=== PATIENT | female | born 1960 | race Caucasian/White ===

== ENCOUNTER 2017-05-05 14:28 | Inpatient (IN) | payer MEDICARE, OTHER ==
[~2017-05-05] VITALS: Ht 182.9 cm; Wt 116.1 kg
[~2017-05-05 14:28] MED LIST: B COMPLEX1 EACH PO; BACLOFEN PUMP; BACLOFEN10 MG PO; CALCIUM 500+D1 EACH PO; CENTRUM SILVER1 EAC3 PO; COLACE100 MG PO; COPAXONE20 MG/KIT IM; CRANBERRY200 MG PO; DULCOLAX SUPP10 MG RC; FISH OIL 1,0001 EAC2 PO; FLONASE16 GM; GINKO PO; MAGNESIUM OXID400 MG PO; METHYLPREDNISOLONE; NIACIN500 M2 PO; NITROFURANTOIN100 MG PO; NORVASC5 MG PO; NYSTATIN1 EAC3 TOP; OXANDROLONE2.5 MG PO; OXYBUTYNIN CHLOR5 MG PO; OYSTER SHELL C1 EA12 PO; PV NEURO VITE1 EACH PO; STOOL SOFTENER1 EAC2 PO; VITAMIN D-40400 UNIT PO; VITAMIN E400 UNI1 PO; WELLBUTRIN XL150 MG PO; Z.0.CITALOPRAM HBR40; Z.0.LEXAPRO20 MG MT
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
--- OUTSIDE RECORDS SUMMARY | 2017-05-05 14:31 | XMS REPORT | Clinical Summary ---
Author Author [facility] Address Unknown Phone Unavailable Care Team Providers Care Hydraulic Dredge Operator Name Role Phone Jordi Barfield MD PCP Allergies No Known Allergies Current Medications Prescription Sig. Disp. Refills Start End Date Status Date oxybutynin (DITROPAN) 5 12/10/19 Active MG tablet 16 nystatin (MYCOSTATIN) APPLY TO AFFECTED AREA 0 12/26/19 Active 100,000 unit/gram cream TWICE A DAY 16 mupirocin (BACTROBAN) 2 % APPLY 1 APPLCATION 0 12/26/19 Active ointment TOPICALLY TWICE A DAY 16 COPAXONE 40 mg/mL syringe 01/28/20 Active 16 amLODIPine (NORVASC) 5 mg Take 5 mg by mouth once 1 11/08/19 Active tablet daily. 16 lactulose (CHRONULAC) 10 TAKE 3 TEASPOONFUL BY 11/08/19 Active gram/15 mL solution MOUTH EVERY 8 HOURS 13 NEEDED mometasone (ELOCON) 0.1 % Apply 4 drops of lotion 04/01/19 Active lotion to entrance of both ears 15 twice a day as needed for itching. traMADol (ULTRAM) 50 mg Take 50 mg by mouth every 0 03/16/19 Active tablet 6 (six) hours as needed. 17 for pain SANTYL ointment 04/23/19 Active 17 baclofen (LIORESAL) 20 MG Take 1 tablet (20 mg 90 tablet 11 09/14/19 Active tabletIndications: total) by mouth 3 (three) 17 Spastic tetraplegia, MS times a day. (multiple sclerosis) LORAZepam (ATIVAN) 0.5 MG 03/11/19 Active tablet 18 mirtazapine (REMERON) 15 03/11/19 Active MG tablet 18 multivitamin with Take 1 tablet by mouth Active minerals tablet daily. cholecalciferol, vitamin Take 2,000 Units by mouth Active D3, (VITAMIN D3) 2,000 daily. unit capsule capsule CEFPODOXIME PROXETIL Take 250 mg by mouth 2 Active (CEFPODOXIME ORAL) (two) times a day. docusate sodium (COLACE) Take 100 mg by mouth 2 Active 100 MG capsule (two) times a day. CALCIUM CARBONATE Take 1 tablet by mouth 2 Active (CALTRATE 600 ORAL) (two) times a day. bisacodyl (DULCOLAX) 10 Insert 10 mg into the Active mg suppository rectum as needed for constipation. citalopram (CeleXA) 20 MG 03/17/19 Active tablet 18 baclofen (LIORESAL) 20 MG Take 1 tablet (20 mg 90 tablet 2 01/05/20 06/16/19 Discontin tablet total) by mouth 3 (three) 16 17 ued times a day for 90 days. oxandrolone (OXANDRIN) Take 2.5 mg by mouth once 1 01/18/20 03/13/19 Discontin 2.5 MG tablet daily. 16 18 ued nitrofurantoin, 01/26/20 03/13/19 Discontin macrocrystal-monohydrate, 16 18 ued (MACROBID) 100 MG capsule cefdinir (OMNICEF) 300 MG TAKE ONE CAPSULE BY MOUTH 0 12/26/19 Discontin capsule EVERY 12 HOURS 16 18 ued buPROPion XL (WELLBUTRIN 01/24/20 03/13/19 Discontin XL) 150 MG 24 hr tablet 16 18 ued baclofen (LIORESAL) 20 MG Take 20 mg by mouth 3 2 04/06/19 06/16/19 Discontin tablet (three) times a day as 17 17 ued needed. cefuroxime (CEFTIN) 500 TAKE 1 TABLET BY MOUTH 0 04/13/19 03/13/19 Discontin MG tablet TWICE A DAY FOR 3 WEEKS 17 18 ued fluconazole (DIFLUCAN) 04/21/19 03/13/19 Discontin 100 MG tablet 17 18 ued baclofen (LIORESAL) 20 MG Take 1 tablet (20 mg 90 tablet 2 06/16/19 09/14/19 Discontin tabletIndications: total) by mouth 3 (three) 17 17 ued Spastic tetraplegia, MS times a day. (multiple sclerosis) traZODone (DESYREL) 50 MG Take 1 tablet (50 mg 30 tablet 3 11/17/19 12/17/19 tablet total) by mouth nightly 17 17 for 30 days. traZODone (DESYREL) 50 MG Take 1 tablet (50 mg 90 tablet 0 01/04/20 01/17/20 Discontin tablet total) by mouth nightly 17 17 ued for 90 days. traZODone (DESYREL) 50 MG Take 1 tablet (50 mg 30 tablet 6 01/17/20 02/16/20 tablet total) by mouth nightly 17 17 for 30 days. traZODone (DESYREL) 50 MG Take 1 tablet (50 mg 90 tablet 3 01/17/20 04/16/19 tablet total) by mouth nightly 17 18 for 90 days. 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 Impacted cerumen 08/02/2012 Eczema 08/02/2012 Incontinence 08/12/2010 Weakness 08/12/2010 Constipation 02/04/2010 Multiple sclerosis 02/04/2010 Muscle spasticity 02/04/2010 Encounters Date Type Specialty Care Team Description 04/18/2017 Telephone Urology Yue Murrieta MD 04/18/2017 Telephone Physical Medicine and Stacey Coker RN Urinary incontinence Rehabilitation without sensory awareness (Primary Dx) 04/05/2017 Office Visit Physical Medicine and Marie Bess MD Spasticity (Primary Dx) Rehabilitation 03/20/2017 Clinical Physical Medicine and Marie Bess MD Insomnia, unspecified Support Rehabilitation type (Primary Dx); Decubitus ulcer of sacral region, stage 2; Spastic tetraplegia; MS (multiple sclerosis); Cognitive impairment 03/15/2017 Telephone Physical Medicine and Stacey Coker RNmanager stylist 03/13/2017 Clinical Physical Medicine and Marie Bess MD Insomnia, unspecified Support Rehabilitation type (Primary Dx); Decubitus ulcer of sacral region, stage 2; Cognitive impairment; Spastic tetraplegia; MS (multiple sclerosis) 01/16/2017 Clinical Physical Medicine and Marie Bess MD MS ( multiple sclerosis) Support Rehabilitation (Primary Dx); Spastic tetraplegia; Muscle spasticity; Decubitus ulcer of sacral region, stage 2; Insomnia, unspecified type 01/03/2017 Telephone Physical Medicine and Stacey Coker RNmanager stylist 11/28/2016 Transcribe Physical Therapy Marie Bess MD Tetraplegia ( Primary Dx); Orders MS (multiple sclerosis) 11/16/2016 Clinical Physical Medicine and Marie Bess MD Spastic tetraplegia Support Rehabilitation (Primary Dx); MS (multiple sclerosis); Fracture of right lower extremity, closed, with routine healing, subsequent encounter; Cognitive impairment; Pressure ulcer, stage 2 09/21/2016 Clinical Physical Medicine and Marie Bess MD Spastic tetraplegia Support Rehabilitation (Primary Dx) 09/13/2016 Refill Physical Medicine and Geeta Rivera, Spastic tetraplegia; Rehabilitation RN MS (multiple sclerosis) 07/29/2016 Clinical Physical Medicine and Marie Bess MD MS ( multiple sclerosis) Support Rehabilitation (Primary Dx); Tetraplegia; Spastic tetraplegia 07/19/2016 Office Visit Neuropsychology Bayron Thurston, PhD MS ( multiple sclerosis); Memory loss; Executive function deficit 06/22/2016 Telephone Physical Medicine and Stacey Coker RNmanager stylist 06/15/2016 Refill Physical Medicine and Geeta Rivera, MS ( multiple sclerosis) Rehabilitation RN (Primary Dx); Spastic tetraplegia 05/25/2016 Office Visit Physical Medicine and Marie Bess MD Multiple sclerosis Rehabilitation (Primary Dx); Spastic tetraplegia; Cognitive impairment 05/13/2016 Transcribe Physical Therapy Paul Wade MD Multiple sclerosis Orders (Primary Dx) 05/10/2016 Telephone Ophthalmology Clinton Thomson MD after 05/04/2016 Family History Medical History Relation Name Comments Hypertension Father Relation Name Status Comments Father Social History Tobacco Use Types Packs/Day Years Used Date Current Every Day Smoker 1 Smokeless Tobacco: Never Used Tobacco Cessation: Ready to Quit: Yes; Counseling Given: Yes Alcohol Use Drinks/Week oz/Week Comments Yes Sex Assigned at Date Recorded Not on file Last Filed Vital Signs Vital Sign Reading Time Taken Blood Pressure 103/80 03/13/2017 2:39 PM ROD TAPE OPERATOR Pulse 118 03/13/2017 2:39 PM ROD TAPE OPERATOR Temperature - - Respiratory Rate - - Oxygen Saturation - - Inhaled Oxygen - - Concentration Weight - - Height - - Body Mass Index - - Plan of Treatment Date Type Specialty Care Team Description 05/30/2017 Clinical Physical Medicine and Marie Bess MD Support Rehabilitation [address] [place], [place] [id number] Health Maintenance Due Date Last Done Comments PAP SMEAR 1982 COLONOSCOPY 2011 MAMMOGRAM 2011 INFLUENZA VACCINE 09/20/2016 Results * Pain pump device (04/05/2017 3:15 PM) Only the most recent of 11 results within the time period is included. Narrative Marie Bess MD 04/05/20174:46 PM Baclofen Pump Date/Time: 04/05/2017 4:40 PM Performed by: GEETA RIVERA Authorized by: MARIE BESS Procedure details: Procedure Type:Reprogram Reprogram Type:Pump interrogated and dosing not changed Estimated VELASQUEZ: 9 Current Total Daily Dose: 959.9 Current Dose Type: flex Estimated residual volume (mL):32.3 s/p MRI Motor stall recovery time:15:25 Alarm Date:06/07/2017 Post-procedure details: Patient tolerance of procedure:Tolerated well, no immediate complications Comments: Will need referral for pump replacement after next pump refill. * Mobility Examination (11/16/2016 4:26 PM) Narrative Marie Bess MD 11/16/20164:26 PM Mobility Exam Date/Time: 11/16/2016 2:59 PM Performed by: MARIE BESS Authorized by: MARIE BESS Medical conditon(s)/disease(s) limiting patient's mobility in home: Multiple Sclerosis and Quadriplegia Physical Exam - Symptoms/ Limitations / Pain: SYMPTOMS:Non-Ambulatory, Abnormal Gait, Unsafe Gait, Risk of Falls, Paralysis, Fatigue and Spastic Upper Body Weakness:Severe Upper Body Pain:None Upper Body Range of Motion:Severely Limited Lower Body Weakness:Severe Lower Body Pain:None Lower Body Range of Motion:Severely Limited PAIN LOCATION:No complaint of pain Mobility Questions: Patient has ability to stand from seated position without assistance?: No Patient Transfer:Dependent Can patient lift themselves from seated surface using only upper extremities?: No Does patient have ability to effectively pressure shift?: No History of pressure sores?: Yes Location(s):Sacral Stage(s):2 Current pressure sores?: Yes Location(s):Sacral Stage(s):2 Upper Extremity Edema: No Lower Extremity Edema: Yes LE Edema Severity:Mild Mobility Related Activities of Daily Living: Without a mobility aid, how far can patient walk without stopping (ft)?: 0 Distance allows patient to complete MRADL in safe and timely manner?: No Select all MRADL that patient is unable to accomplish due to mobility limitations.:Eating, Grooming, Moving from Room to Room, Dressing, Bathing, Meal Prep, Toileting and Light Housekeeping Is patient willing and have cogintion, judgment and/or vision to independently participate in MRADLs with a mobility device?: Yes Will a cane or walker allow patient to complete all MRADLs safely and timely?: No Does patient have sufficient upper and/or lower extremity strength to self-propel an optimally configured manual wheelchair to complete all MRADLs safely and timely?: No Scooter use requires a patient to have sufficient trunk strength, hand gasket maker, and upper extremity function, balance to sit upright, requires the ability to stand and pivot and may require more space in home to maneuver. Given these requirements, is a scooter appropriate?: No Reason(s):Patient has insufficient trunk stability, Patient has insufficient upper extremity function and/or strength, Patient has insufficient hand gasket maker, Patient does not have sufficient balance to sit upright and Patient requires seating and/or options that aren't available on a scooter Does the patient have the functional ability to consistently access a drive controland the cognition, judgment, and visual ability to safely operate a power wheelchair to participate in MRADLs within their home?: Yes Patient requires OT/PT Functional Mobility Assessment?: Yes after 05/04/2016 Insurance Payer Benefit Subscriber ID Type Phone Address Plan / Group MEDICARE MEDICARE xxxxxxxxxx Medicare [place], [place] PART A AND B [facility] xxxxxxxx Commercial SUPPLEMENT Work: [id number] [facility] [place] [id number] Home:
[2017-05-05 16:19] LABS: BASOPHILS % 0.3 % (0.0-1.0); EOSINOPHILS # (AUTO) 0.2 (0.0-0.4); EOSINOPHILS % 1.7 % (0.0-6.0); HEMATOCRIT 42.2 % (34.2-44.1); HEMOGLOBIN 14.6 g/dL (12.0-16.0); LYMPHOCYTES # (AUTO) 1.6 (1.0-3.2); LYMPHOCYTES % 11.3 % (18.0-39.1); MEAN CORPUSCULAR HEMOGLOBIN 34.3 pg (28-32); MEAN CORPUSCULAR HGB CONC 34.6 g/dL (31-35); MEAN CORPUSCULAR VOLUME 99.1 fL (81-99); MONOCYTES # (AUTO) 0.6 (0.2-0.8); MONOCYTES % 4.4 % (4.4-11.3); NEUTROPHILS # (AUTO) 11.4 (2.1-6.9); NEUTROPHILS % 81.9 % (38.7-80.0); PLATELET COUNT 290 x10e3/uL (140-360); RED BLOOD COUNT 4.26 x10e6/uL (3.6-5.1); RED CELL DISTRIBUTION WIDTH 13.1 % (11.7-14.4)
[2017-05-05 16:37] LABS: ALANINE AMINOTRANSFERASE 24 IU/L (0-55); ALBUMIN 2.9 g/dL (3.5-5.0); ALBUMIN/GLOBULIN RATIO 0.7 (0.8-2.0); ALKALINE PHOSPHATASE 110 IU/L (40-150); ANION GAP 16.2 mmol/L (8-16); BLOOD UREA NITROGEN 6 mg/dL (7-26); BUN/CREATININE RATIO 13 (6-25); CALCIUM 9.6 mg/dL (8.4-10.2); CARBON DIOXIDE 30 mmol/L (22-29); CHLORIDE 90 mmol/L (98-107); CREATININE, SERUM 0.46 mg/dL (0.57-1.11); EST GLOMERULAR FILTRATION RATE > 60 ML/MIN (60-); GLUCOSE 96 mg/dL (74-118); POTASSIUM 4.2 mmol/L (3.5-5.1); SODIUM 132 mmol/L (136-145)
[2017-05-05] MEDS ORDERED: SODIUM CHLORIDE 0.9% 1000ML 500 ML IV STA (16:57)
[2017-05-05] MEDS ORDERED: SODIUM CHLORIDE 0.9% 1000ML 1,000 ML IV STA (16:57)
[2017-05-05] MEDS ORDERED: CEFEPIME HCL 1 GM VIAL IV ONE (17:00)
[2017-05-05] MEDS ORDERED: ONDANSETRON HCL INJ 2 MG/ML VIAL IV PRN (17:15)
[2017-05-05] MEDS ORDERED: MORPHINE SULFATE 2 MG/ML SYR IV PRN (17:15)
[2017-05-05] MEDS: CEFEPIME HCL 1 GM VIAL IV SCH (17:20)
[2017-05-05] MEDS: SODIUM CHLORIDE 0.9% 1000ML 1,000 ML IV SCH (17:20)
--- NOTE | 2017-05-05 18:14 | Diagnostic Imaging Report ---
PROCEDURE: A single AP view of the chest. COMPARISON: 11/19/15 INDICATIONS: fever, uti FINDINGS: Lines/tubes: None. Lungs: The lungs are well inflated. Minimal left lower lung field haziness. Pleura: There is no significant pleural effusion or pneumothorax. Heart and mediastinum: The heart and the mediastinum are unremarkable. Bones: No acute bony abnormality. Redemonstration of marked dextroscoliosis. IMPRESSION: Minimal left lower lung field haziness, which could represent atelectasis and/or pneumonia. Dictated by: Brian Cantu M.D. on 05/05/2017 at 18:14 Electronically approved by: Brian Cantu M.D. on 05/05/2017 at 18:14
[2017-05-05] MEDS ORDERED: LEVOFLOXACIN 750MG/D5W 150ML 150 ML IV ONE (18:30)
[2017-05-05 18:46] LABS: BILIRUBIN,URINE NEGATIVE (NEGATIVE); CLARITY,URINE SL CLOUDY (CLEAR); COLOR,URINE STRAW (YELLOW); KETONES,URINE NEGATIVE (NEGATIVE); LEUKOCYTE ESTERASE ,URINE 2+ (NEGATIVE); NITRITE,URINE POSITIVE (NEGATIVE); PROTEIN,URINE DIPSTICK TRACE (NEGATIVE); URINE UROBILINOGEN 0.2 mg/dL (0.2 - 1)
[2017-05-05 18:59] LABS: BACTERIA,URINE MODERATE /HPF; EPITHELIAL CELLS,URINE FEW /LPF; RBC,URINE 21-50 /HPF (0-5)
--- NOTE | 2017-05-05 21:45 | Diagnostic Imaging Report ---
CHEST XRAY LINE PLACEMENT, 05/05/2017 9:19 PM Technique: CHEST XRAY LINE PLACEMENT Comparison: 02/22/1505/05/2017 Clinical history: \S\CONFIRM LINE PLACEMENT \[id number] \S\2100 \S\Y Findings: See Impression Impression: Limited portable technique with right lateral hemithorax excluded and leftward patient rotation. 1. Lines/Tubes: Right PICC seen at least over the proximal SVC, tip not visualized. 2. Grossly stable cardiomediastinal silhouette. Left basilar atelectasis/aspiration/consolidation. Signed by: Dr Ofelia Pacheco MD on 05/05/2017 10:31 PM
[2017-05-06] MEDS: SODIUM CHLORIDE 0.9% 1000ML 1,000 ML IV SCH ×3 (01:08→22:27)
[2017-05-06 06:00] LABS: BASOPHILS % 0.3 % (0.0-1.0); EOSINOPHILS # (AUTO) 0.4 (0.0-0.4); EOSINOPHILS % 4.1 % (0.0-6.0); HEMATOCRIT 38.7 % (34.2-44.1); HEMOGLOBIN 13.1 g/dL (12.0-16.0); LYMPHOCYTES # (AUTO) 1.4 (1.0-3.2); LYMPHOCYTES % 14.8 % (18.0-39.1); MEAN CORPUSCULAR HEMOGLOBIN 34.3 pg (28-32); MEAN CORPUSCULAR HGB CONC 33.9 g/dL (31-35); MEAN CORPUSCULAR VOLUME 101.3 fL (81-99); MONOCYTES # (AUTO) 0.6 (0.2-0.8); MONOCYTES % 6.4 % (4.4-11.3); NEUTROPHILS % 74.2 % (38.7-80.0); PLATELET COUNT 259 x10e3/uL (140-360); RED BLOOD COUNT 3.82 x10e6/uL (3.6-5.1)
[2017-05-06] MEDS: CEFEPIME HCL 1 GM VIAL IV SCH ×2 (06:29→16:18)
[2017-05-06 06:56] LABS: ALANINE AMINOTRANSFERASE 18 IU/L (0-55); ALBUMIN 2.5 g/dL (3.5-5.0); ALBUMIN/GLOBULIN RATIO 0.8 (0.8-2.0); ALKALINE PHOSPHATASE 91 IU/L (40-150); ANION GAP 9.2 mmol/L (8-16); BLOOD UREA NITROGEN 5 mg/dL (7-26); BUN/CREATININE RATIO 12 (6-25); CALCIUM 8.5 mg/dL (8.4-10.2); CARBON DIOXIDE 31 mmol/L (22-29); CHLORIDE 97 mmol/L (98-107); CREATININE, SERUM 0.43 mg/dL (0.57-1.11); EST GLOMERULAR FILTRATION RATE > 60 ML/MIN (60-); GLUCOSE 90 mg/dL (74-118); POTASSIUM 3.2 mmol/L (3.5-5.1); SODIUM 134 mmol/L (136-145)
--- OUTSIDE RECORDS SUMMARY | 2017-05-06 07:22 | XMS REPORT | Clinical Summary ---
Author Author [facility] Address Unknown Phone Unavailable Care Team Providers Care Armament Installer Name Role Phone Jordi Barfield MD PCP [...] 03/15/2017 Telephone Physical Medicine and Stacey Coker RNrailroad watchman 03/13/2017 Clinical Physical Medicine and Marie Bess [...] 01/03/2017 Telephone Physical Medicine and Stacey Coker RNrailroad watchman 11/28/2016 Transcribe Physical Therapy Marie Bess MD [...] 06/22/2016 Telephone Physical Medicine and Stacey Coker RNrailroad watchman 06/15/2016 Refill Physical Medicine and Geeta Rivera, MS ( multiple sclerosis) Rehabilitation RN (Primary Dx); Spastic tetraplegia 05/25/2016 Office Visit Physical Medicine and Marie Bess MD Multiple sclerosis Rehabilitation (Primary Dx); Spastic tetraplegia; Cognitive impairment 05/13/2016 Transcribe Physical Therapy Paul Wade MD Multiple sclerosis Orders (Primary Dx) 05/10/2016 Telephone Ophthalmology Clinton Thomson MD after 05/05/2016 Family History Medical History Relation Name Comments [...] Taken Blood Pressure 103/80 03/13/2017 2:39 PM FURNITURE POLISHER Pulse 118 03/13/2017 2:39 PM FURNITURE POLISHER Temperature - - Respiratory Rate - - Oxygen Saturation - - Inhaled Oxygen - - Concentration Weight - - Height - - Body Mass Index - - Plan of Treatment Date Type Specialty Care Team Description 05/30/2017 Clinical Physical Medicine and Marie Bess MD Support Rehabilitation [address] [place], [place] [id number] Health Maintenance Due Date Last Done Comments [...] patient to have sufficient trunk strength, hand furniture packer, and upper extremity function, balance to sit upright, requires the ability to stand and pivot and may require more space in home to maneuver. Given these requirements, is a scooter appropriate?: No Reason(s):Patient has insufficient trunk stability, Patient has insufficient upper extremity function and/or strength, Patient has insufficient hand furniture packer, Patient does not have sufficient balance to sit upright and Patient requires seating and/or options that aren't available on a scooter Does the patient have the functional ability to consistently access a drive controland the cognition, judgment, and visual ability to safely operate a power wheelchair to participate in MRADLs within their home?: Yes Patient requires OT/PT Functional Mobility Assessment?: Yes after 05/05/2016 Insurance Payer Benefit Subscriber ID Type Phone Address Plan / Group MEDICARE MEDICARE xxxxxxxxxx Medicare [place], [place] PART A AND B [facility] xxxxxxxx Commercial SUPPLEMENT Work: [address] [facility] [place] [id number] Home:
[2017-05-06 10:50] VITALS: BP 125/85
[2017-05-06 10:52] VITALS: BP 125/85
[2017-05-06] MEDS ORDERED: BACLOFEN 10 MG TAB PO PRN (12:30)
[2017-05-06] MEDS: NITROFURANTOIN MACROCRYSTALS 100 MG CAP PO SCH ×2 (13:30→23:56)
[2017-05-06] MEDS ORDERED: POTASSIUM CHLORIDE 10 MEQ TABCR PO SCH (14:00)
[2017-05-06 15:37] VITALS: BP 141/84
[2017-05-06 18:55] VITALS: BP 140/82
--- NOTE | 2017-05-06 19:56 | Consultation ---
DATE OF CONSULTATION: May 06, 2017 INFECTIOUS DISEASE CONSULTATION REASON FOR CONSULTATION: Pyelonephritis, UTI. HISTORY OF PRESENT ILLNESS: Thank you very much for asking me to see this patient. She is known to me from before. She is a 57-year-old white female who has history of multiple sclerosis really advanced. The patient called me on Monday complaining of fever and chills, back pain, not feeling well. The patient has history of recurrent UTI before. She is on suppressive oral antibiotic, but because she has history of multidrug-resistant pathogen, I was really concerned that she needed to be on IV antibiotic, something like cefepime or meropenem. So, I asked her to come to the hospital to be admitted. The patient came to the hospital. She does have history of suprapubic catheter. She has been seeing Dr. Jake Buck as an outpatient. When I saw the patient, she was just not feeling well, having fever and chills. She did not want to come to the hospital, but I told her it is very hard for me to secure her IV antibiotic and I do not know what kind of bacteria she is growing and she is possibly multidrug-resistant since she is on oral antibiotic. She has been on oral antibiotic for a long time. So, she finally agreed to come to the hospital. PAST MEDICAL HISTORY: Multiple sclerosis which is advanced. Suprapubic catheter. Depression. Chronic constipation. PAST SURGICAL HISTORY: She has a suprapubic catheter. Urostomy. [place] pouch. Baclofen pump. ALLERGIES: NKA. SOCIAL HISTORY: There is no smoking, drug abuse, alcohol abuse. Patient has an excellent caregiver who takes care of her. HOME MEDICATIONS: She is on baclofen, niacin, ibuprofen, magnesium, vitamin B, Colace, nitrofurantoin, nystatin. REVIEW OF SYSTEMS CONSTITUTIONAL: Just not feeling well in general. HEENT: She has no visual changes or hearing changes. GI: There is no nausea, no vomiting, no diarrhea. CARDIAC: There is no arrhythmia or chest pain. NEURO: No seizure activity but she is very limited mobility. She has a wheelchair. She is dependent on care. She needs 24-hour care. LABORATORY DATA: White count on admission was 13.8, hemoglobin 14.4, hematocrit 42. Today it is 9.3. Her sodium 134, potassium 3.2, creatinine of 0.43. Liver enzymes within normal limits. Her culture is still pending. Urine culture is still pending. PHYSICAL EXAMINATION GENERAL: She is currently alert, oriented, does not seem to be in acute distress. VITAL SIGNS: Stable. Currently afebrile. HEENT: She does not appear icteric. NECK: Supple. CHEST: Clear. HEART: S1 and S2. No S3 or S4, no murmur. ABDOMEN: Soft. Bowel sounds present. No tenderness. EXTREMITIES: No edema. IMPRESSION 1. Urinary tract infection. Will continue cefepime. Seems to be feeling better. White count is coming down. 2. Multiple sclerosis, severe. 3. Constipation. 4. Will arrange home IV antibiotic once we have the sensitivity. Will plan on 14 days of IV antibiotic. Discussed with the patient. Job#: [id number] EV
[2017-05-06 20:00] VITALS: BP 140/82
[2017-05-07] VITALS: BP 149/89
[2017-05-07 04:00] VITALS: BP 154/109
[2017-05-07] MEDS: CEFEPIME HCL 1 GM VIAL IV SCH ×2 (04:17→16:19)
[2017-05-07] MEDS: SODIUM CHLORIDE 0.9% 1000ML 1,000 ML IV SCH ×4 (05:20→22:31)
[2017-05-07 08:18] VITALS: BP 152/92
[2017-05-07] MEDS: OXANDROLONE PO SCH (09:00)
[2017-05-07] MEDS: OYST-CAL-D 500MG TABLET PO SCH (09:33)
[2017-05-07] MEDS: OXYBUTYNIN CHLORIDE 5 MG TAB PO SCH (09:33)
[2017-05-07] MEDS: NIACIN 500 MG TABSR PO SCH (09:33)
[2017-05-07] MEDS: DOCUSATE SODIUM 100 MG CAP PO SCH (09:33)
[2017-05-07] MEDS: MAGNESIUM OXIDE 400 MG TAB PO SCH (09:33)
[2017-05-07] MEDS: AMLODIPINE BESYLATE 5 MG TAB PO SCH (09:33)
[2017-05-07] MEDS: BUPROPION HCL 150 MG TABCR PO SCH (09:33)
[2017-05-07] MEDS ORDERED: CITRATE OF MAGNESIA 300ML BOTTLE PO ONE ×2 (09:45→13:00)
[2017-05-07] MEDS: NITROFURANTOIN MACROCRYSTALS 100 MG CAP PO SCH (11:43)
[2017-05-07 12:20] VITALS: BP 133/81
[2017-05-07 15:45] LABS: BASOPHILS % 0.4 % (0.0-1.0); EOSINOPHILS # (AUTO) 0.3 (0.0-0.4); EOSINOPHILS % 2.9 % (0.0-6.0); HEMATOCRIT 42.7 % (34.2-44.1); HEMOGLOBIN 14.5 g/dL (12.0-16.0); LYMPHOCYTES # (AUTO) 0.9 (1.0-3.2); LYMPHOCYTES % 9.1 % (18.0-39.1); MEAN CORPUSCULAR HEMOGLOBIN 34.4 pg (28-32); MEAN CORPUSCULAR VOLUME 101.2 fL (81-99); MONOCYTES # (AUTO) 0.5 (0.2-0.8); MONOCYTES % 5.2 % (4.4-11.3); NEUTROPHILS # (AUTO) 8.3 (2.1-6.9); PLATELET COUNT 291 x10e3/uL (140-360); RED BLOOD COUNT 4.22 x10e6/uL (3.6-5.1)
[2017-05-07 16:06] LABS: ANION GAP 12.6 mmol/L (8-16); BLOOD UREA NITROGEN 6 mg/dL (7-26); BUN/CREATININE RATIO 12 (6-25); CALCIUM 8.7 mg/dL (8.4-10.2); CARBON DIOXIDE 32 mmol/L (22-29); CHLORIDE 98 mmol/L (98-107); CREATININE, SERUM 0.52 mg/dL (0.57-1.11); EST GLOMERULAR FILTRATION RATE > 60 ML/MIN (60-); GLUCOSE 123 mg/dL (74-118); POTASSIUM 3.6 mmol/L (3.5-5.1); SODIUM 139 mmol/L (136-145)
--- NOTE | 2017-05-07 16:41 | Progress Note ---
DATE: May 07, 2017 INFECTIOUS DISEASE PROGRESS NOTE SUBJECTIVE: Ms. Espinoza is doing better today. There are no new complaints. REVIEW OF SYSTEMS HEENT: Negative. PULMONARY: Negative. CARDIAC: Negative. PHYSICAL EXAMINATION GENERAL: She is currently alert, oriented, does not seem to be in acute distress, follows commands. VITAL SIGNS: Stable. Currently afebrile. HEENT: She does not appear icteric. Normocephalic. NECK: Supple. CHEST: Clear. HEART: S1 and S2. No S3 or S4, no murmur. ABDOMEN: Soft. Bowel sounds present. No tenderness. EXTREMITIES: Trace edema. There is no new urological finding. She had no fever since admission. Her urine culture is showing gram-negative bacilli, enterococcus. The gram-negative bacilli was 1:99,000 final colony, and enterococcus is about the same. MEDICATION: She is no Macrobid and niacin and cefepime. IMPRESSION 1. Urinary tract infection, sepsis and pyelonephritis. UTI and pyelonephritis present on admission. Failed oral antibiotic as suppressive treatment. Will discharge home tomorrow with cefepime 1 g q.12 for 14 days. 2. Discussed with her caregiver. The patient apparently has been drinking alcohol. She probably had like over the last 3 days before she came here. The patient is aware, and these are her wishes. 3. Multiple sclerosis, advanced. 4. Suprapubic catheter. 5. Depression. 6. Chronic constipation. Will follow. Job#: [id number] EV
[2017-05-07 17:05] VITALS: BP 143/79
--- NOTE | 2017-05-07 17:25 | Diagnostic Imaging Report ---
EXAM: CT Abdomen and Pelvis WITHOUT contrast INDICATION: \S\UTI'S, NGB, ANNA POUCH. STONE PROTOCOL. \[id number] \S\[id number] COMPARISON: CT dated 02/17/2015 TECHNIQUE: Abdomen and pelvis were scanned utilizing a multidetector helical scanner from the lung base to the pubic symphysis without administration of IV contrast. Absence of intravenous contrast decreases sensitivity for detection of focal lesions and vascular pathology. Coronal and sagittal reformations were obtained. Renal stone protocol was performed. IV CONTRAST: None ORAL CONTRAST: Water COMPLICATIONS: None RADIATION DOSE: Total DLP: 639.88 mGy*cm Estimated effective dose: (DLP x 0.015 x size factor) mSv CTDIvol has been reviewed. It is below the limits set by the Radiation Protocol Committee (RPC). FINDINGS: LINES and TUBES: Suprapubic Lazo catheter in place. Right lower quadrant subcutaneous spine stimulator device in place with distal lead extending beyond the superior margin of the exam. LOWER THORAX: Posterior left base consolidation, likely atelectasis. There is also mild atelectasis of the right base. HEPATOBILIARY: Unenhanced liver is unremarkable. Bladder wall No biliary ductal dilation. GALLBLADDER: Fundal gallbladder wall is irregular thickening (series 3, image 83). There is also a questionable partially calcified calculus in gallbladder neck. SPLEEN: No splenomegaly. PANCREAS: No focal masses or ductal dilatation. ADRENALS: 2.4 cm left adrenal adenoma. No right adrenal nodule. KIDNEYS/URETERS: Minimal right hydroureteronephrosis. Dilated right extrarenal pelvis. Examination of renal parenchyma is limited without intravenous contrast. Possible superior pole left renal cyst. No stones. GI TRACT: No abnormal distention, wall thickening, or evidence of bowel obstruction. Stool throughout the colon, suggestive of constipation. Right lower quadrant colonic suture line. PELVIC ORGANS/BLADDER: Bladder wall thickening with intravesical air and suprapubic Lazo catheter in place. LYMPH NODES: No lymphadenopathy. VESSELS: Unremarkable. PERITONEUM / RETROPERITONEUM: No free air or fluid. BONES: Generalized demineralization limits evaluation. Right inferior pubic ramus ill-defined sclerosis (series 3, image 181). Mild scoliosis of lumbar spine. SOFT TISSUES: Increased induration adjacent to the left greater trochanter with a tract to the skin (series 3, image 180). Subcutaneous edema of the bilateral flank and pelvis IMPRESSION: 1. No nephrolithiasis or evidence of obstructive urolithiasis. 2. Minimal right hydroureteronephrosis with distended extrarenal pelvis. 3. Bladder wall thickening with suprapubic Lazo catheter in place. Cystitis cannot be excluded. 4. Ill-defined sclerotic lesion of the right inferior pubic ramus. Bone scan can be obtained to further evaluate. 5. Posterior left basilar lung consolidation, likely atelectasis/scarring. Underlying pneumonia cannot be entirely excluded. 6. Questionable cholelithiasis. The gallbladder fundus is prominent. Underlying lesion cannot be excluded. Recommend correlation with right upper quadrant ultrasound. 7. Increased induration adjacent to the left greater trochanter with a tract to the skin. Infectious process or developing abscess cannot be excluded. No definite evidence of osteomyelitis. Signed by: Dr. Brian Cantu MD on 05/07/2017 5:21 PM
[2017-05-07 20:53] VITALS: BP 159/77
[2017-05-08] VITALS (10 sets, daily range): BP systolic 134–176; BP diastolic 58–98
[2017-05-08] MEDS: NITROFURANTOIN MACROCRYSTALS 100 MG CAP PO SCH (00:42)
[2017-05-08] MEDS: SODIUM CHLORIDE 0.9% 1000ML 1,000 ML IV SCH ×4 (01:08→23:44)
[2017-05-08] MEDS: CEFEPIME HCL 1 GM VIAL IV SCH (05:30)
[2017-05-08] MEDS: DOCUSATE SODIUM 100 MG CAP PO SCH (08:42)
[2017-05-08] MEDS: OYST-CAL-D 500MG TABLET PO SCH (08:42)
[2017-05-08] MEDS: BUPROPION HCL 150 MG TABCR PO SCH (08:42)
[2017-05-08] MEDS: MAGNESIUM OXIDE 400 MG TAB PO SCH (08:42)
[2017-05-08] MEDS: OXYBUTYNIN CHLORIDE 5 MG TAB PO SCH (08:42)
[2017-05-08] MEDS: NIACIN 500 MG TABSR PO SCH (08:42)
[2017-05-08] MEDS: OXANDROLONE PO SCH (08:42)
[2017-05-08] MEDS: AMLODIPINE BESYLATE 5 MG TAB PO SCH (08:42)
[2017-05-08] MEDS ORDERED: PIPER-TAZ 3.375 GM 50 ML IV SCH (10:00)
--- NOTE | 2017-05-08 16:38 | Progress Note ---
DATE: INFECTIOUS DISEASE PROGRESS NOTE SUBJECTIVE: Ms. Espinoza is eager to go home. She has no new complaints. REVIEW OF SYSTEMS: There is nothing new today. PHYSICAL EXAMINATION GENERAL: She is alert, follows command, does not seem to be in acute distress. VITAL SIGNS: Stable. Currently afebrile. HEENT: She does not appear icteric. NECK: Supple. CHEST: Clear. HEART: S1 and S2. No S3 or S4, no murmur. ABDOMEN: Soft. NEURO: Nothing new in neurological examination. She is about the same. Her cultures reveal she has Pseudomonas aeruginosa and Enterococcus faecalis. The Pseudomonas aeruginosa was sensitive to imipenem, gentamicin, resistant to Levaquin. IMPRESSION 1. Urinary tract infection with multidrug resistance. Will discontinue Zosyn. Will discontinue nitrofurantoin, and cefepime has been discontinued. Will put her on meropenem. Will ask for 2 weeks of IV meropenem to be arranged if possible as an outpatient. 2. Multiple sclerosis, severe. 3. Depression. Will discuss with Case Management to see what are her options. Job#: [id number] EV
[2017-05-08] MEDS ORDERED: MEROPENEM 500 MG VIAL ONE ×2 (20:32→22:22)
[2017-05-08] MEDS: MEROPENEM 500MG 500 MG in SODIUM CHLORIDE 0.9% 50ML 50 ML IV SCH (22:47)
[2017-05-09] VITALS (7 sets, daily range): BP systolic 143–176; BP diastolic 74–98
[2017-05-09] MEDS ORDERED: MEROPENEM 500 MG VIAL ONE ×2 (04:48→14:16)
[2017-05-09] MEDS: MEROPENEM 500MG 500 MG in SODIUM CHLORIDE 0.9% 50ML 50 ML IV SCH ×2 (06:03→14:47)
[2017-05-09] MEDS: SODIUM CHLORIDE 0.9% 1000ML 1,000 ML IV SCH ×2 (08:30→16:41)
[2017-05-09] MEDS: OXYBUTYNIN CHLORIDE 5 MG TAB PO SCH (09:33)
[2017-05-09] MEDS: DOCUSATE SODIUM 100 MG CAP PO SCH (09:33)
[2017-05-09] MEDS: OYST-CAL-D 500MG TABLET PO SCH (09:34)
[2017-05-09] MEDS: MAGNESIUM OXIDE 400 MG TAB PO SCH (09:34)
[2017-05-09] MEDS: AMLODIPINE BESYLATE 5 MG TAB PO SCH (09:34)
[2017-05-09] MEDS: NIACIN 500 MG TABSR PO SCH (09:34)
[2017-05-09] MEDS: BUPROPION HCL 150 MG TABCR PO SCH (09:34)
[2017-05-09] MEDS: OXANDROLONE PO SCH (09:34)
[2017-05-09] MEDS ORDERED: MERREM500 MG IV ×2 (19:58→20:00)
[2017-05-09] MEDS ORDERED: MEROPENEM 500 MG VIAL IV SCH ×2 (22:00)
== END 2017-05-09 21:22 | disposition home health service (06) | DRG 698 ==
LOC: ER 14:28 → ERHOLD 05-06 07:19 → IMCU 05-06 09:20 → OBSVTOIN 05-07 05:33 → MED/SURG 05-07 17:52 → MED/SURG3 05-08 15:47
PROC: 02HV33Z Insertion of Infusion Device into Superior Vena Cava, Percutaneous Approach (ICD-10-PCS; principal; 2017-05-05)
DX: T83.511A Infection and inflammatory reaction due to indwelling urethral catheter, initial encounter (principal); A41.9 Sepsis, unspecified organism; G35 Multiple sclerosis; N12 Tubulo-interstitial nephritis, not specified as acute or chronic; K59.00 Constipation, unspecified; R31.29 Other microscopic hematuria; E87.6 Hypokalemia; R53.81 Other malaise; D35.02 Benign neoplasm of left adrenal gland; Z16.24 Resistance to multiple antibiotics; B96.5 Pseudomonas (aeruginosa) (mallei) (pseudomallei) as the cause of diseases classified elsewhere; B95.2 Enterococcus as the cause of diseases classified elsewhere
CPT/HCPCS: 36415; 36569; 71045; 74176; 80048; 80053; 81001; 85025; 87040; 87086; 87186; 99284; G0378; J0692; J2185; J2543; J7030

== ENCOUNTER 2017-09-15 14:30 | Emergency (ER) | payer MEDICARE, OTHER ==
[~2017-09-15] VITALS: Ht 182.9 cm; Wt 70.3 kg
[~2017-09-15 14:30] MED LIST changes: +MERREM500 MG IV
[2017-09-15] MEDS: LACTULOSE SYRUP 20 GM/30 ML UDC PO ONE ×2 (16:54→17:14)
== END 2017-09-15 19:49 | disposition home or self-care (01) ==
LOC: ER 14:30
DX: K56.41 Fecal impaction (principal); G35 Multiple sclerosis; I10 Essential (primary) hypertension; F32.9 Major depressive disorder, single episode, unspecified; F17.210 Nicotine dependence, cigarettes, uncomplicated
CPT/HCPCS: 99284

== ENCOUNTER → 2018-04-26 | Outpatient (CLI) | payer MEDICARE, OTHER ==
--- NOTE | 2018-04-26 16:34 | Diagnostic Imaging Report ---
Exam: Left ankle 3 views History: Pain Comparison: None. Findings: No acute fracture. Bone demineralization. Remote healed fracture deformity of the tibia. Scattered degenerative arthrosis. Impression: No displaced fracture Signed by: Dr. Clinton Mendoza M.D. on 04/26/2018 4:30 PM
== END ==
LOC: RAD 15:20
PROVIDERS: ATTEND Family Medicine
DX: M25.572 Pain in left ankle and joints of left foot (principal); S90.02XA Contusion of left ankle, initial encounter

== ENCOUNTER → 2018-09-04 | Outpatient (CLI) | payer MEDICARE, OTHER ==
--- NOTE | 2018-09-04 16:59 | Diagnostic Imaging Report ---
Exam: Bilateral Knee Series. History: Bilateral knee pain, history of right distal femur fracture. Comparison: None Findings: Right knee: 3 views of the right knee demonstrate healed old fracture of the distal femur with apex anterior angulation. Knee joint alignment is near-anatomic. No acute fracture or dislocation. No substantial joint effusion. Moderate patellofemoral compartment predominant degenerative changes with joint space narrowing and osteophyte formation. Left knee: 3 views of the left knee demonstrate no acute fracture or dislocation. Alignment is anatomic. Mild tricompartmental degenerative changes with joint space narrowing. No substantial joint effusion. Impression: No acute fracture or dislocation. Moderate right knee degenerative changes. Mild left knee degenerative changes. Signed by: Abdoul Justice MD on 09/04/2018 4:56 PM
== END ==
LOC: RAD 15:56
PROVIDERS: ATTEND Family Medicine
DX: M25.562 Pain in left knee (principal); M25.561 Pain in right knee; Z87.81 Personal history of (healed) traumatic fracture

== ENCOUNTER 2018-10-18 13:29 | Emergency (ER) | payer MEDICARE, OTHER ==
[~2018-10-18] VITALS: Ht 182.9 cm; Wt 70.3 kg
--- OUTSIDE RECORDS SUMMARY | 2018-10-18 13:34 | XMS REPORT | Clinical Summary ---
Author Author [facility] Address Unknown Phone Unavailable Care Team Providers Care Metal Checker Name Role Phone Pcp, No PCP Unavailable Allergies No Known Allergies Medications End Date Status Medication Sig Dispensed Refills Start Date Active baclofen (LIORESAL) 10 MG Take 10 mg by 0 tablet mouth every 8 (eight) hours. Active citalopram (CELEXA) 40 MG Take 40 mg by 0 tablet mouth daily. Active oxandrolone (OXANDRIN) 10 Take 10 mg by 0 MG tablet mouth daily. Active Problems Problem Noted Date Pyelonephritis 04/26/2013 Pneumonia 04/26/2013 Multiple sclerosis 04/26/2013 Encounters Care Team Description Date Type Specialty Paul Wade MD Multiple sclerosis (HCC); Loss of consciousness (HCC) 04/04/2018 Hospital Encounter Paul Wade MD Multiple sclerosis (HCC) (Primary Dx); Loss of consciousness (HCC) 03/30/2018 Outside Orders Central Scheduling after 10/17/2017 Social History Date Tobacco Use Types Packs/Day Years Used Current Every Day Smoker Cigarettes 1 Alcohol Use Drinks/Week oz/Week Comments No Sex Assigned at Date Recorded Not on file Industry Job Start Date Occupation Not on file Not on file Not on file Travel End Travel History Travel Start No recent travel history available. Last Filed Vital Signs Not on file Plan of Treatment Not on file Procedures Comments Procedure Name Priority Date/Time Associated Diagnosis EEG AWAKE AND DROWSY Routine 04/04/2018 Multiple sclerosis (HCC) 3:36 PM [employer] Loss of consciousness (HCC) after 10/17/2017 Results * EEG Awake & Drowsy (04/04/2018 3:36 PM [employer]) Specimen Narrative Performed At [facility] EEG REPORT GE RIS DATE OF TEST: 04-04-2018 DATE OF REPORT: 04-04-2018 ACC: [id number] EE2 Start time: 15:01 Stop time: 15:32 ICD-10: R56.9 CPT Code: 97125 HISTORY: 58 yo female with past medical hx of Multiple sclerosis since 1999, with h/o seizure like activity. MEDICATIONS: baclofen, mirtazapine, trazodone,colace, keflex TECHNICAL SUMMARY: This is a digital video EEG recorded with 32 input channels reviewed with bipolar and referential montages using the modified combinatorial system nomenclature. DESCRIPTION OF RECORD: During the maximally alert state a 9-10 Hz posterior dominant rhythm was seen that was symmetric, reactive to eye opening and well regulated. More anteriorly, low voltage frontocentral beta predominated.Drowsiness was characterized by alpha attenuation and increased frontocentral theta. Stage 2 sleep was reached characterized by symmetric sleep spindles. HV: Hyperventilation was not performed. PHOTIC STIMULATION: Photic stimulation was done from 1-30 Hz; no photic driving was seen; photoparoxysmal responses were absent. VIDEO EVENTS RECORDED: None ELECTROCARDIOGRAM EVENTS: None IMPRESSION: Normal awake and sleep EEG. CLINICAL CORRELATION: An EEG without epileptiform discharges does not exclude the possibility of epilepsy.If the clinical suspicion of epilepsy remains, consider additional EEG recordings. Mian Nicholson MD Clinical Neurophysiology Fellow Haseeb Holloway MD, MS Clinical Neurophysiology/Epilepsy Attending Procedure Note Interface, External Ris In - 04/04/2018 4:10 PM [employer] [facility] EEG REPORT DATE OF TEST: 04-04-2018 DATE OF REPORT: 04-04-2018 ACC: [id number] EE2 Start time: 15:01 Stop time: 15:32 ICD-10: R56.9 CPT Code: 91541 HISTORY: 58 yo female with past medical hx of Multiple sclerosis since 1999, with h/o seizure like activity. MEDICATIONS: baclofen, mirtazapine, trazodone,colace, keflex TECHNICAL SUMMARY: This is a digital video EEG recorded with 32 input channels reviewed with bipolar and referential montages using the modified combinatorial system nomenclature. DESCRIPTION OF RECORD: During the maximally alert state a 9-10 Hz posterior dominant rhythm was seen that was symmetric, reactive to eye opening and well regulated. More anteriorly, low voltage frontocentral beta predominated. Drowsiness was characterized by alpha attenuation and increased frontocentral theta. Stage 2 sleep was reached characterized by symmetric sleep spindles. HV: Hyperventilation was not performed. PHOTIC STIMULATION: Photic stimulation was done from 1-30 Hz; no photic driving was seen; photoparoxysmal responses were absent. VIDEO EVENTS RECORDED: None ELECTROCARDIOGRAM EVENTS: None IMPRESSION: Normal awake and sleep EEG. CLINICAL CORRELATION: An EEG without epileptiform discharges does not exclude the possibility of epilepsy. If the clinical suspicion of epilepsy remains, consider additional EEG recordings. Mian Nicholson MD Clinical Neurophysiology Fellow Haseeb Holloway MD, MS Clinical Neurophysiology/Epilepsy Attending Performing Organization Address City/State/Zipcode Phone Number GE RIS after 10/17/2017 Insurance Payer Benefit Subscriber ID Type Phone Address Plan / Group MEDICARE MEDICARE A xxxxxxxxxxx Medicare B [facility] xxxxxxxx PPO PPO Advance Directives Patient has advance care planning documents, and code status on file. For more i nformation, please contact: [facility] [address] [place] [address] Date Inactivated Comments Code Status Date Activated 04/29/2013 5:09 PM All possible means of support, including: cardiac massage, mechanical ventilation, and defibrillation will be used to support life. Code ONE 04/26/2013 9:51 PM
--- OUTSIDE RECORDS SUMMARY | 2018-10-18 13:34 | XMS REPORT | Clinical Summary ---
Author Author [place] [facility] Organization [facility] Address Unknown Phone Unavailable Care Team Providers Care Drive Worker Name Role Phone Gurvinder Barfield DO PCP Allergies No Known Allergies Medications End Date Status Medication Sig Dispensed Refills Start Date Active COPAXONE 40 mg/mL syringe 3 (three) 0 times a week. 6 Active amLODIPine (NORVASC) 5 mg Take 5 mg by 1 tablet mouth 2 (two) 6 times a day. Active lactulose (CHRONULAC) 10 TAKE 3 0 gram/15 mL solution TEASPOONFUL 3 BY MOUTH EVERY 8 HOURS NEEDED Active LORAZepam (ATIVAN) 0.5 MG 0.5 mg 2 0 tablet (two) times a 8 day. Active mirtazapine (REMERON) 15 Take 45 mg by 0 MG tablet mouth 8 nightly. Active multivitamin with Take 1 tablet 0 minerals tablet by mouth daily. Active cholecalciferol, vitamin Take 2,000 0 D3, (VITAMIN D3) 2,000 Units by unit capsule capsule mouth daily. Active docusate sodium (COLACE) Take 100 mg 0 100 MG capsule by mouth 2 (two) times a day. Active bisacodyl (DULCOLAX) 10 Insert 10 mg 0 mg suppository into the rectum as needed for constipation (Uses Tuesdays, and Sundays). Active VENELEX 87-788 mg/gram as needed. 0 ointment 8 Active hydrOXYzine (VISTARIL) 50 TAKE 1 1 MG capsule CAPSULE BY 8 MOUTH EVERY 8 HOURS NEEDED Active ketoconazole (NIZORAL) 2 APPLY TO 1 10/24/201 % cream AFFECTED AREA 8 OF FACE TWICE A DAY NEEDED - DECREASE USE IT IMPROVES Active UNABLE TO FIND Take 1,200 mg 0 by mouth daily. Calcium Active niacin 500 MG tablet Take 500 mg 0 by mouth daily with breakfast. Active UNABLE TO FIND Take by mouth 0 daily. Super B Complex USB Active cyanocobalamin, vitamin Take 1,000 mg 0 B-12, (VITAMIN B-12 ORAL) by mouth daily. Active UNABLE TO FIND Take 120 mg 0 by mouth daily. Ginkobiloba Active potassium gluconate 550 Take by mouth 0 mg (90 mg) tablet daily. Active magnesium oxide 500 mg Take by mouth 0 tablet daily. Active cranberry fruit extract Take 4,200 mg 0 (CRANBERRY ORAL) by mouth daily. Active UNABLE TO FIND Take by mouth 0 daily. Fish oil 1200/ [place] 3 350mg Active diphenhydrAMINE Take 25 mg by 0 (BENADRYL) 25 mg tablet mouth nightly as needed for sleep. Active Lactobacillus rhamnosus Take by mouth 0 GG (CULTURELLE ORAL) daily. Active aspirin (ECOTRIN) 81 MG Take 81 mg by 0 enteric coated tablet mouth daily. Active traZODone (DESYREL) 50 MG Take 2 60 tablet 3 tablet tablets (100 9 mg total) by mouth nightly. Additional information Patient taking differently: 150 mg oral nightly, Reported on 07/11/2018 1:32 PM Active baclofen (LIORESAL) 20 MG Take 1 tablet 270 tablet 3 tabletIndications: (20 mg total) 9 Spastic tetraplegia by mouth 3 (HCC), MS (multiple (three) times sclerosis) ([facility]) a day. Active estradiol (ESTRACE) 0.01 INSERT 1 GRAM 42 g 0 % (0.1 mg/gram) vaginal INTO THE 9 cream VAGINA THREE TIMES A WEEK Active cephalexin (KEFLEX) 500 Take 500 mg 0 MG capsule by mouth 3 (three) times a week. Active nitrofurantoin, TAKE 1 14 capsule 0 macrocrystal-monohydrate, CAPSULE BY 9 (MACROBID) 100 MG capsule MOUTH TWICE A DAY FOR 7 DAYS 10/31/2018 Active nitrofurantoin, Take 1 90 capsule 3 macrocrystal-monohydrate, capsule (100 9 (MACROBID) 100 MG capsule mg total) by mouth daily for 90 days. Active desonide (DESOWEN) 0.05 % APPLY TO 2 cream AFFECTED 9 AREAS OF FACE DAILY Active desoximetasone (TOPICORT) APPLY TO 0 0.05 % cream AFFECTED 9 AREAS OF FACE WITH SEVERE FLARE UPS ONLY, DECREASE USE IT IMPROVES Active methenamine (HIPREX) 1 0 gram tablet 9 10/26/2017 Discontinued oxybutynin (DITROPAN) 5 0 MG tablet 6 10/26/2017 Discontinued nystatin (MYCOSTATIN) APPLY TO 0 100,000 unit/gram cream AFFECTED AREA 6 TWICE A DAY 10/26/2017 Discontinued mupirocin (BACTROBAN) 2 % APPLY 1 0 ointment APPLCATION 6 TOPICALLY TWICE A DAY 10/26/2017 Discontinued mometasone (ELOCON) 0.1 % Apply 4 drops 0 lotion of lotion to 5 entrance of both ears twice a day as needed for itching. 10/26/2017 Discontinued traMADol (ULTRAM) 50 mg Take 50 mg by 0 tablet mouth every 6 7 (six) hours as needed. for pain 10/26/2017 Discontinued SANTYL ointment 0 7 10/26/2017 Discontinued CEFPODOXIME PROXETIL Take 250 mg 0 (CEFPODOXIME ORAL) by mouth 2 (two) times a day. 02/28/2018 Discontinued (Med List Cleanup) CALCIUM CARBONATE Take 1 tablet 0 (CALTRATE 600 ORAL) by mouth 2 (two) times a day. 10/26/2017 Discontinued citalopram (CeleXA) 20 MG 0 tablet 8 10/26/2017 Discontinued buPROPion XL (WELLBUTRIN TAKE 1 TAB BY 0 XL) 150 MG 24 hr tablet MOUTH EVERY 8 MORNING. 10/26/2017 Discontinued clindamycin (CLEOCIN T) 1 APPLY TO 2 % lotion AFFECTED AREA 8 A SMALL AMOUNT 3 TIMES A DAY 10/24/2017 Discontinued (Reorder) traZODone (DESYREL) 50 MG Take 2 60 tablet 3 tablet tablets (100 8 mg total) by mouth nightly. 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 10/26/2017 Discontinued (Stop Taking at Discharge) levoFLOXacin (LEVAQUIN) Take 1 tablet 10 tablet 0 500 MG tablet (500 mg 8 total) by mouth daily for 10 days. 03/20/2018 Discontinued (Reorder) traZODone (DESYREL) 50 MG Take 2 60 tablet 3 tablet tablets (100 8 mg total) by mouth nightly. 10/26/2017 Discontinued (Stop Taking at Discharge) aspirin (ECOTRIN) 81 MG Take 81 mg by 0 enteric coated tablet mouth daily. 10/26/2017 Discontinued (Stop Taking at Discharge) cephalexin (KEFLEX) 500 Take 500 mg 0 MG capsule by mouth 4 (four) times a day. 11/09/2017 acetaminophen-codeine Take 1-2 30 tablet 1 (TYLENOL WITH CODEINE #3) tablets by 8 300-30 mg per tablet mouth every 6 (six) hours as needed for moderate pain for up to 14 days. 11/02/2017 ciprofloxacin (CIPRO) 500 Take 1 tablet 14 tablet 0 MG tablet (500 mg 8 total) by mouth 2 (two) times a day for 7 days. 11/02/2017 cephalexin (KEFLEX) 500 Take 1 21 capsule 0 MG capsule capsule (500 8 mg total) by mouth 3 (three) times a day for 7 days. 01/15/2018 Discontinued methenamine (MANDELAMINE) Take by mouth 0 0.5 GM tablet 2 (two) times a day. 08/02/2018 Discontinued (Non-compliance) methenamine (HIPREX) 1 Take 1 g by 3 gram tablet mouth 2 (two) 8 times a day. 03/01/2018 LORAZepam (ATIVAN) 1 MG Take 1 tablet 1 tablet 0 tablet (1 mg total) 9 by mouth once for 1 dose. 04/09/2018 Discontinued (Reorder) traZODone (DESYREL) 50 MG Take 2 60 tablet 3 tablet tablets (100 9 mg total) by mouth nightly. 05/22/2018 Discontinued (Reorder) estradiol (ESTRACE) 0.01 Insert 1 g 42.5 g 1 % (0.1 mg/gram) vaginal into the 9 cream vagina 3 (three) times a week. 04/03/2018 metroNIDAZOLE (METROGEL) Insert into 70 g 0 0.75 % vaginal gel the vagina 2 9 (two) times a day for 5 days. 04/25/2018 Discontinued (Med List Cleanup) nitrofurantoin, Take 1 14 capsule 0 macrocrystal-monohydrate, capsule (100 9 (MACROBID) 100 MG capsule mg total) by mouth 2 (two) times a day for 7 days. 04/25/2018 ciprofloxacin (CIPRO) 500 Take 1 tablet 14 tablet 0 MG tablet (500 mg 9 total) by mouth 2 (two) times a day for 7 days. 04/25/2018 ciprofloxacin (CIPRO) 500 Take 1 tablet 10 tablet 0 MG tablet (500 mg 9 total) by mouth 2 (two) times a day for 5 days. 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 Impacted cerumen 08/02/2012 Eczema 08/02/2012 Incontinence 08/12/2010 Weakness 08/12/2010 Constipation 02/04/2010 Multiple sclerosis 02/04/2010 Muscle spasticity 02/04/2010 Encounters Care Team Description Date Type Specialty Yue Robins MD Neurogenic bladder (Primary Dx); Recurrent UTI 10/17/2018 Clinical Urology Support Marie Guerra MD MS (multiple sclerosis) (HCC) (Primary Dx); Spastic tetraplegia (HCC); Tetraplegia (HCC); Closed fracture of right lower extremity with routine healing, subsequent encounter; Pressure injury of sacral region, stage 2; Cognitive impairment; Insomnia, unspecified type 10/17/2018 Clinical Physical Medicine and Support Rehabilitation Ally Bhagat MD Breast mass (Primary Dx) 09/12/2018 Transcribe Access Orders Clarice Miner MA Neurogenic bladder (Primary Dx); Recurrent UTI 08/09/2018 Telephone Urology Yue Robins MD 08/02/2018 Refill Urology Yue Robins MD 08/01/2018 Refill Urology Marie Guerra MD MS (multiple sclerosis) (HCC) (Primary Dx); Spastic tetraplegia (HCC); Tetraplegia (HCC); Closed fracture of right lower extremity with routine healing, subsequent encounter; Pressure injury of sacral region, stage 2; Cognitive impairment; Insomnia, unspecified type 07/11/2018 Clinical Physical Medicine and Support Rehabilitation Yue Robins MD 05/29/2018 Telephone Urology Yue Robins MD 05/25/2018 Telephone Urology Ally Bhagat MD 05/22/2018 Refill Obstetrics and Gynecology Malinda Huggins MA 04/25/2018 Telephone Urology Matteo Mcwilliams DO Cunningham, Carley, CRNA 04/20/2018 Anesthesia Urology Event Yue Robins MD CYSTOSCOPY, EXAM UNDER ANESTHESIA, CYSTOGRAM, BILATERAL RETROGRADE PYELOGRAM, VAGINOSCOPY 04/20/2018 Surgery Urology Yue Robins MD 04/20/2018 Hospital Urology Encounter Malinda Huggins MA 04/17/2018 Telephone Urology Yue Robins MD Neurogenic bladder 04/09/2018 Hospital Radiology Encounter Marie Guerra MD MS (multiple sclerosis) (HCC) (Primary Dx); Spastic tetraplegia (HCC); Tetraplegia (HCC); Closed fracture of right lower extremity with routine healing, subsequent encounter; Pressure injury of sacral region, stage 2; Cognitive impairment; Insomnia, unspecified type 04/09/2018 Clinical Physical Medicine and Support Rehabilitation Yue Robins MD 04/06/2018 Telephone UrologYue Major MD 04/05/2018 Telephone Urology Ally Bhagat MD 04/05/2018 Telephone Obstetrics and Gynecology Ally Bhagat MD Breast mass, right 03/26/2018 Hospital Radiology Encounter Ally Bhagat MD 03/22/2018 Telephone Obstetrics and Gynecology Verna Ford MA 03/20/2018 Refill Physical Medicine and Rehabilitation Ally Bhagat MD 03/02/2018 Telephone Obstetrics and Gynecology Ally Bhagat MD 02/28/2018 Telephone Obstetrics and Gynecology Satish Pearson RN 02/28/2018 Telephone Radiology Mary Velazco MA Breast mass, right (Primary Dx) 02/28/2018 Telephone Obstetrics and Gynecology Ally Bhagat MD Mass of upper inner quadrant of right breast ; Breast mass, right 02/23/2018 Hospital Radiology Encounter Ally Bhagat MD Mass of upper inner quadrant of right breast ; Breast mass, right 02/23/2018 Hospital Radiology Encounter Mary Velazco MA Breast mass, right (Primary Dx); Mass of upper inner quadrant of right breast 01/23/2018 Telephone Obstetrics and Gynecology Mary Velazco MA 01/16/2018 Telephone Obstetrics and Gynecology Yue Robins MD Neurogenic bladder (Primary Dx); Multiple sclerosis (HCC); Abdominal distension; Abdominal wall abscess; Incomplete bladder emptying; Hypertonicity of bladder 01/15/2018 Office Visit Urology Marie Guerra MD Constipation, unspecified constipation type (Primary Dx); Multiple sclerosis (HCC); MS (multiple sclerosis) (HCC); Tetraplegia (HCC); Spastic tetraplegia (HCC) 01/15/2018 Clinical Physical Medicine and Support Rehabilitation Ally Bhagat MD Encounter for screening mammogram for malignant neoplasm of breast 01/15/2018 Hospital Radiology Encounter Yue Robins MD 01/01/2018 Telephone Urology Yue Robins MD 12/14/2017 Telephone Urology Ally Bhagat MD Visit for gynecologic examination (Primary Dx); Encounter for screening mammogram for malignant neoplasm of breast 12/07/2017 Office Visit Obstetrics and Gynecology Stacey Coker RN 11/28/2017 Telephone Physical Medicine and Rehabilitation Yue Robins MD Status post implantation of artificial urinary sphincter (Primary Dx); Incomplete bladder emptying; Urge urinary incontinence; Hypertonicity of bladder; Encounter for care or replacement of suprapubic tube (HCC) 11/27/2017 Office Visit Urology Yue Robins MD 11/20/2017 Telephone Urology Lisandra Moura RN Multiple sclerosis (Primary Dx) 11/06/2017 Clinical Neurosurgery Support Yue Robins MD 10/31/2017 Telephone Urology Kristin Cardona MD 10/26/2017 Anesthesia General Surgery Event Erik Dye MD REPLACEMENT OF BACLOFEN PUMP 10/26/2017 Surgery General Surgery Erik Dye MD Spastic quadriparesis; Acute flaccid quadriplegia; Generalized multiple sclerosis; Bladder mass; Neurogenic bladder; 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 10/26/2017 Hospital General Surgery Encounter Lisandra Moura RN Spastic quadriparesis (Primary Dx) 10/25/2017 Prep for Neurosurgery Surgery Yue Robins MD 10/25/2017 Telephone Urology Verna Ford MA 10/24/2017 Refill Physical Medicine and Rehabilitation Beth Fenton MA 10/19/2017 Telephone Urology Beth Fenton MA Pre-op exam (Primary Dx) 10/19/2017 Orders Only Urology Yue Robins MD 10/19/2017 Telephone Urology after 10/17/2017 Family History Medical History Relation Name Comments Hypertension Father Relation Name Status Comments Father Social History Date Tobacco Use Types Packs/Day Years Used Current Every Day Smoker Cigarettes 1 20 Smokeless Tobacco: Never Used Tobacco Cessation: Ready to Quit: Yes; Counseling Given: Yes Drinks/Week oz/Week Comments Alcohol Use Yes Sex Assigned at Date Recorded Not on file Industry Job Start Date Occupation Not on file Not on file Not on file Travel End Travel History Travel Start No recent travel history available. Last Filed Vital Signs Reading Time Taken Comments Vital Sign 105/70 10/17/2018 2:38 PM CDT Blood Pressure 98 10/17/2018 2:38 PM CDT Pulse 36.4 C (97.6 F) 04/20/2018 1:41 PM V BELT CURER Temperature 16 04/20/2018 1:41 PM V BELT CURER Respiratory Rate 100% 04/20/2018 1:41 PM V BELT CURER Oxygen Saturation - - Inhaled Oxygen Concentration 71.2 kg (157 lb) 10/26/2017 10:14 AM CDT Weight 182.9 cm (6') 10/26/2017 10:14 AM CDT Height 21.29 10/26/2017 10:14 AM CDT Body Mass Index Plan of Treatment Care Team Description Date Type Specialty Ally Bhagat MD [address] [facility] [address] [place] [address] [phone] 11/13/2018 Office Visit Obstetrics and Gynecology Ally Bhagat MD [address] [facility] [address] [place] [address] [phone] 11/13/2018 Appointment Radiology Yue Robins MD [address] [facility] [address] [place] [address] [phone] 12/11/2018 Office Visit Urology Marie Guerra MD [address] [facility] [address] [place] [address] [phone] 01/14/2019 Clinical Physical Medicine and Support Rehabilitation Health Maintenance Due Date Last Done Comments COLONOSCOPY SCREENING 2011 SHINGLES VACCINES (#1) 2011 INFLUENZA VACCINE 09/20/2018 BREAST CANCER SCREENING 02/24/2020 02/23/2018, 01/15/2018 CERVICAL CANCER SCREENING 12/07/2020 12/07/2017 Implants Device Identifier Shelf Expiration Date Model / Serial / Lot Implanted Type Area Manufactur er 12/17/2018 [id number] / [id number] / [id number] Pump Infsn Synchromed Ii W/ Fltr Neurosurgi N/A: N/A [employer] Sut Loop Prgrmbl Rsvr 40ml - griselda NEUROMODUL [id number] Implants ATION Implanted: 10/26/2017 at [facility] (Quantity not on file) Procedures Comments Procedure Name Priority Date/Time Associated Diagnosis IL ANALYZE INFUSN Routine 10/17/2018 MS (multiple sclerosis) PUMP+REPROGRAM 1:45 PM CDT (HCC) Spastic tetraplegia (HCC) IL ELECT ANLYS IMPLT Routine 10/17/2018 MS (multiple sclerosis) ITHCL/EDRL GRINDING ROOM SUPERVISOR 1:45 PM CDT (HCC) W/REPRG&REFILL Spastic tetraplegia (HCC) IL ELECT ANLYS IMPLT Routine 07/11/2018 MS (multiple sclerosis) ITHCL/EDRL GRINDING ROOM SUPERVISOR 1:30 PM CDT (HCC) W/REPRG&REFILL Spastic tetraplegia (HCC) FL CYSTOGRAM MINIMUM 3 VW Routine 04/20/2018 12:00 PM V BELT CURER ANESTHESIA INTUBATION Routine 04/20/2018 10:22 AM V BELT CURER Procedure Note - Matteo Mcwilliams DO - 04/20/2018 10:22 AM V BELT CURER Airway Performed by: Matteo Mcwilliams DO Authorized by: Matteo Mcwilliams DO Location: OR Difficult Airway: No Preoxygena jasvir with 100% O2: Yes C-spine Precaution s Maintained Throughout : Yes Mask Ventilatio n: Not attempted Final Airway Type: Supraglott ic airway Final LMA: I-Gel LMA Size: 4 Number of Attempts at Approach: 1 Preoxygen ated x 3 minutes, eyes lubed and taped after LOC, oral and facial structures unchanged after LMA placement CYSTOSCOPY 04/20/2018 Hydronephrosis 10:14 AM V BELT CURER Vaginal discharge Case Notes TF ~ 1000, REQ 0730 START Special Needs TF ~ 1000, REQ 0730 START, EST 1HR CT RENAL STONE PROTOCOL Routine 04/09/2018 Neurogenic bladder 5:29 PM V BELT CURER IL ANALYZE INFUSN Routine 04/09/2018 Spastic tetraplegia (HCC) PUMP+REPROGRAM 2:30 PM V BELT CURER IL ELECT ANLYS IMPLT Routine 04/09/2018 Spastic tetraplegia (HCC) ITHCL/EDRL GRINDING ROOM SUPERVISOR 2:30 PM V BELT CURER W/REPRG&REFILL SURGICAL PATHOLOGY Routine 03/26/2018 REQUEST 2:09 PM V BELT CURER US BREAST BIOPSY RIGHT Routine 03/26/2018 Breast mass, right 11:40 AM V BELT CURER US BREAST COMPLETE RIGHT Routine 02/23/2018 Mass of upper inner 2:59 PM V BELT CURER quadrant of right breast Breast mass, right BASIC METABOLIC PANEL Routine 01/15/2018 Neurogenic bladder 5:19 PM V BELT CURER MAMMO SCREENING W CAD Routine 01/15/2018 Encounter for screening BILATERAL 2:17 PM V BELT CURER mammogram for malignant neoplasm of breast IL ANALYZE INFUSN Routine 01/15/2018 Multiple sclerosis (HCC) PUMP+REPROGRAM 2:15 PM V BELT CURER Spastic tetraplegia (HCC) IL ELECT ANLYS IMPLT Routine 01/15/2018 Multiple sclerosis (HCC) ITHCL/EDRL GRINDING ROOM SUPERVISOR 2:15 PM V BELT CURER Spastic tetraplegia (HCC) W/REPRG&REFILL SURGICAL PATHOLOGY Routine 10/26/2017 REQUEST 3:00 PM CDT OR FL < 1 HOUR Routine 10/26/2017 12:50 PM CDT IL AN ELECTIVE Routine 10/26/2017 SUPRAGLOTTIC AIRWAY 12:47 PM CDT Procedure Note - Kristin Cardona MD - 10/26/2017 12:47 PM CDT Airway Date/Time: 10/26/2017 12:15 PM Performed by: KRISTIN CARDONA Authorized by: KRISTIN CARDONA Location: OR Urgency: Elective Difficult Airway: No Anesthesio logist: KRISTIN CARDONA Performed by: anesthesio logist Preoxygena jasvir with 100% O2: Yes C-spine Precaution s Maintained Throughout : No Mask Ventilatio n: Not attempted Final Airway Type: Supraglott ic airway Final LMA: Classic LMA Size: 4 Number of Attempts at Approach: 1 REPAIR, HERNIA, 10/26/2017 Acute flaccid INCISIONAL OR VENTRAL 12:01 PM CDT quadriplegia Generalized multiple sclerosis Bladder mass Neurogenic bladder 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 FIRST, EST 1 HR) PHYSICIAN IS NOT REQUESTING MAIN OR STAFF, 200 UNITS OF BOTOX, CONFIRMED TIME AND ORDER FOR DR ROBINS WITH JOSE 0823 [facility] Special Needs [employer] DEVICE, C-ARM, DR ROBINS CO SURGEON (WORKING SECOND, EST 1 HR) PHYSICIAN IS NOT REQUESTING MAIN OR STAFF, 200 UNITS OF BOTOX after 10/17/2017 Results * Baclofen Pump (10/17/2018 1:45 PM CDT) Only the most recent of 7 results within the time period is included. Narrative Performed At Marie Guerra MD 10/17/20184:02 PM Baclofen Pump Date/Time: 10/17/2018 3:02 PM Performed by: Stacey Coker RN Authorized by: Marie Guerra MD Procedure details: Procedure Type:Reprogram Reprogram Type:Pump interrogated and dosing changed Estimated VELASQUZE: 70months Current Total Daily Dose: 733.6 Current Dose Type: flex Current Bolus: no current bolus Current Bolus Details: Estimated residual volume (mL):40 Dose change:Increase Dose change (%):5 New Total Daily Dose:770.6flex New Bolus: no new bolus New Bolus Details: Alarm Date:01/23/2019 Post-procedure details: Patient tolerance of procedure:Tolerated well, no immediate complications Comments: Please see social media designer for detailed ITB pump report. * FL Cystogram [place] 3 Views (04/20/2018 12:00 PM V BELT CURER) Specimen Narrative Performed At IMPRESSION:C-arm Fluoroscopy under 1 hour was provided in the OR for the [facility] referring physician.A radiologist was not present during the procedure. Refer to the Operative report issued by the performing provider for procedure details. [facility]-[id number] Procedure Note Interface, Radiology Results Incoming - 04/20/2018 4:34 PM V BELT CURER IMPRESSION: C-arm Fluoroscopy under 1 hour was provided in the OR for the referring physician. A radiologist was not present during the procedure. Refer to the Operative report issued by the performing provider for procedure details. [facility]-[id number] Performing Organization Address City/State/Zipcode Phone Number [facility] [address] [place] [address] * CT Renal Stone Protocol (04/09/2018 5:29 PM V BELT CURER) Specimen Narrative Performed At Examination:CT RENAL STONE PROTOCOL [facility] Clinical history:"N31.9 Neuromuscular dysfunction of bladderunspecified, fever" Comparison:There are no prior studies for comparison. Technique:Multiple axial CT images of the abdomen and pelvis were obtained without the intravenous administration of iodinated contrast.Sagittal and coronal computerized, reformatted images were obtained and archived.The lack of intravenous contrast reduces the sensitivity of detecting solid organ and vascular disease.CT imaging was performed with iterative reconstruction technique and/or automated exposure control to reduce radiation dose. IMPRESSION: CT ABDOMEN: Heart size is within normal limits. Lung basesstraight left hemidiaphragmatic elevation. Liver, pancreas, and spleen, are within normal limits. There is gallbladder wall calcification. Recommend ultrasound to better assess. Right adrenal gland is unremarkable. A left adrenal hypodensity is 3.0 x 2.2 cm. Is compatible with an adenoma. Evaluation of the kidneys demonstrates hypodense lesion in the upper pole left kidney which is probably a cyst and measures 16 mm. Mild right hydronephrosis is seen. CT PELVIS: Postoperative material is seen in the cecum. There is a right lower quadrant stoma. Suprapubic catheter is seen. There is fluid in the vagina. Recommend clinical correlation. Better assessment may be possible with ultrasound No enlarged pelvic lymph node or mass is seen. The bones are osteopenic. [id number] Procedure Note Hm Interface, Radiology Results Incoming - 04/09/2018 5:51 PM V BELT CURER Examination: CT RENAL STONE PROTOCOL Clinical history: "N31.9 Neuromuscular dysfunction of bladder unspecified, fever" Comparison: There are no prior studies for comparison. Technique: Multiple axial CT images of the abdomen and pelvis were obtained without the intravenous administration of iodinated contrast. Sagittal and coronal computerized, reformatted images were obtained and archived. The lack of intravenous contrast reduces the sensitivity of detecting solid organ and vascular disease. CT imaging was performed with iterative reconstruction technique and/or automated exposure control to reduce radiation dose. IMPRESSION: CT ABDOMEN: Heart size is within normal limits. Lung bases straight left hemidiaphragmatic elevation. Liver, pancreas, and spleen, are within normal limits. There is gallbladder wall calcification. Recommend ultrasound to better assess. Right adrenal gland is unremarkable. A left adrenal hypodensity is 3.0 x 2.2 cm. Is compatible with an adenoma. Evaluation of the kidneys demonstrates hypodense lesion in the upper pole left kidney which is probably a cyst and measures 16 mm. Mild right hydronephrosis is seen. CT PELVIS: Postoperative material is seen in the cecum. There is a right lower quadrant stoma. Suprapubic catheter is seen. There is fluid in the vagina. Recommend clinical correlation. Better assessment may be possible with ultrasound No enlarged pelvic lymph node or mass is seen. The bones are osteopenic. [facility]-[id number] Performing Organization Address City/[facility]/Zipcode Phone Number [facility] [address] [place] [address] * Surgical pathology request (03/26/2018 2:09 PM V BELT CURER) Only the most recent of 2 results within the time period is included. [facility] DEPARTMENT OF PATHOLOGY AND GENOMIC MEDICINE Surgical See link below for PDF Lab [facility] DEPARTMENT pathology Report OF PATHOLOGY report AND GENOMIC MEDICINE Result status This is Final Report for [facility] DEPARTMENT [id number] OF PATHOLOGY AND GENOMIC MEDICINE Specimen Performing Organization Address City/[facility]/Zipcode Phone Number [facility] DEPARTMENT OF [address] [place] [address] PATHOLOGY AND GENOMIC MEDICINE * US Breast Biopsy Right (03/26/2018 11:40 AM V BELT CURER) Specimen Narrative Performed At PROCEDURE: KAIN US BREAST BIOPSY RIGHT CLINICAL HISTORY: The patient came in for ultrasound-guided core biopsy of the right breast as previously recommended. The lesion targeted to represented a solid mass at approximately 12 o'clock position measuring 9.5 x 8.4 mm. The patient was found to a wheelchair and was unable to move to the stretcher for the biopsy procedure. The procedure was performed with the patient in her wheelchair CONSENT: Informed consent for ultrasound guided core needle biopsy of the right breast was obtained following a detailed discussion of the procedure, alternatives, risks, and complications including hemorrhage, infection, and clip migration. PROCEDURE: After a confirmatory pause with the biopsy team and after obtaining informed consent, approximately 3core samples were obtained through a single skin incision and a ribbon-shaped clip was deployed marking the biopsy site. A vacuum-assisted needle was utilized under ultrasound guidance. The samples obtained were sent to pathology. The patient tolerated the procedure and left the department in stable condition. Postprocedure mammogram was not obtained given the patient's difficulty in cooperating with mammographic imaging. The patient tolerated the procedure and left the department in stable condition. Histology is pending. IMPRESSION: Ultrasound guided core needle biopsy/biopsies of the right breast are complete.Final pathology report is pending. [id number] Performing Organization Address City/State/Zipcode Phone Number [facility] [address] [place] [address] * US Breast Complete Right (02/23/2018 2:59 PM V BELT CURER) Specimen Narrative Performed At PROCEDURE: US BREAST COMPLETE RIGHT KAIN Callback from a screening exam on January 15, 2018. COMPARISON: See mammogram of 01/15/2018. This is the only mammogram available. FINDINGS:The findings show a well described circumscribed hypoechoic mass in the 12:00 position in the right breast with measurement of 9.5 mm x 8.4 mm x 6 mm. There is a suggestion of some posterior acoustic shadowing but some of this may be artifactual. This appears as though it lies on top of the pectoralis muscle at for deep portion of the breast. There is another second mass fairly close to this area that is oval hypoechoic and smaller measuring up to 6 mm in maximum diameter. No shadowing seen. Elsewhere in the right breast are multiple areas of collections of microcysts. IMPRESSION: Right breast ultrasound reveals a well-circumscribed solid masses and to roughly the same site at 12:00 position with one measuring up to 9.5 mm and another one measuring 6 mm. The differential could be a complex cyst versus fibroadenoma versus more malignant pathology. RECOMMENDATION: Ultrasound-guided biopsy if physically able to with stand the procedure. If not, six-month follow-up recommended. BI-RADS 4:SUSPICIOUS. RECOMMEND TISSUE DIAGNOSIS [id number] Performing Organization Address City/[facility]/Zipcode Phone Number [facility] [address] [place] [address] * Basic metabolic panel (01/15/2018 5:19 PM V BELT CURER) Glucose 106 (H) 65 - 99 mg/dL [facility] Comment: DIAGNOSTICS Fasting [place] reference interval For someone without known diabetes, a glucose value between 100 and 125 mg/dL is consistent with prediabetes and should be confirmed with a follow-up test. BUN, whole 9 7 - 25 mg/dL [facility] blood DIAGNOSTICS [place] Creatinine 0.23 (L) 0.50 - 1.05 mg/dL [facility] Comment: DIAGNOSTICS For patients >49 years of age, [place] the reference limit for Creatinine is approximately 13% higher for people identified as -Greek. EGFR Non-Afr. 140 > OR=60 [facility] [place] mL/min/1.73m2 [facility] EGFR 162 > OR=60 [facility] [place] mL/min/1.73m2 [facility] BUN/creatinine 39 (H) 6 - 22 (calc) [facility] ratio [facility] Sodium 140 135 - 146 mmol/L [facility] Potassium 4.5 3.5 - 5.3 mmol/L [facility] [place] Chloride 97 (L) 98 - 110 mmol/L [facility] [place] CO2 32 20 - 32 mmol/L [facility] [place] Calcium 9.2 8.6 - 10.4 mg/dL [employer] [place] Specimen Blood Resulting Agency Comment Performing Organization Information: Site ID: [id number] Name: [facility] Address: [address] [place] [address] Director: Ariana Herrera Performing Organization Address City/[facility]/Zipcode Phone Number [facility] [employer] [place] [address] [place] [address] * Mammo Screening w Cad Bilateral (01/15/2018 2:17 PM V BELT CURER) Specimen Addenda Addendum by Sadaf Mackay MD on 03/28/2018 7:49 AM ADDENDUM #1 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 Please refer to the pathology report for detailed explanation of the findings. Continued monitoring of the clinical examination as well as 6 month follow-up for the other lesions described in the prior ultrasound with mammogram and ultrasound in 6 months time is recommended Narrative Performed At PROCEDURE: [facility] MAMMO SCREENING W CAD BILATERAL Computer-assisted detection was utilized for the interpretation of this exam. COMPARISON: None. TECHNIQUE: Bilateral digital screening mammogram was performed and interpreted using computer-assisted detection. CLINICAL HISTORY: The patient has no current palpable breast complaints. The patient had difficulty cooperating with positioning. The technologist stated the best possible images were obtained. FINDINGS: Bilateral mammogram demonstrates the breast parenchyma to beheterogeneously dense, which could obscure the detection of small masses. The axillary portions of both breast in the mediolateral oblique views are limited. LEFT:No specific features of malignancy. RIGHT: Possible 1 cm mass in the right central upper breast IMPRESSION: BI-RADS Category 0.Incomplete.Further evaluation of the described findings in the right breast is advised with diagnostic mammography and/or ultrasound. This facility is accredited by [employer] for Mammography. A negative x-ray report should not delay biopsy if a dominant or clinically suspicious mass is present. Not all cancers are identified by x-ray. [id number] Procedure Note Interface, Radiology Results Incoming - 01/15/2018 2:50 PM V BELT CURER PROCEDURE: MAMMO SCREENING W CAD BILATERAL Computer-assisted detection was utilized for the interpretation of this exam. COMPARISON: None. TECHNIQUE: Bilateral digital screening mammogram was performed and interpreted using computer-assisted detection. CLINICAL HISTORY: The patient has no current palpable breast complaints. The patient had difficulty cooperating with positioning. The technologist stated the best possible images were obtained. FINDINGS: Bilateral mammogram demonstrates the breast parenchyma to be heterogeneously dense, which could obscure the detection of small masses. The axillary portions of both breast in the mediolateral oblique views are limited. LEFT: No specific features of malignancy. RIGHT: Possible 1 cm mass in the right central upper breast IMPRESSION: BI-RADS Category 0. Incomplete. Further evaluation of the described findings in the right breast is advised with diagnostic mammography and/or ultrasound. This facility is accredited by [employer] for Mammography. A negative x-ray report should not delay biopsy if a dominant or clinically suspicious mass is present. Not all cancers are identified by x-ray. [id number] Performing Organization Address City/[facility]/Zipcode Phone Number [facility] [address] [place] [address] * OR [place] < 1 Hour (10/26/2017 12:50 PM CDT) Specimen Narrative Performed At EXAMINATION:OR [place] 1 HOUR HM [facility] C-arm fluoroscopy was requested in OR. Location: [facility] OR 10 Procedure: MED PUMP REV Start: 1230 End: 1250 Fluoro Time: 0.1M mGy: 0.319 TechTD IMPRESSION: Separate operative report will be issued by the physician performing the procedure. [id number] Procedure Note Hm Interface, Radiology Results Incoming - 10/26/2017 8:01 PM CDT EXAMINATION: OR FL 1 HOUR C-arm fluoroscopy was requested in OR. Location: [facility] OR 10 Procedure: MED PUMP REV Start: 1230 End: 1250 Fluoro Time: 0.1M mGy: 0.319 TechTD IMPRESSION: Separate operative report will be issued by the physician performing the procedure. [id number] Performing Organization Address City/[facility]/Zipcode Phone Number [facility] [address] [place] [address] after 10/17/2017 Insurance Type Payer Benefit Subscriber ID Effective Phone Address Plan / Dates Group Medicare MEDICARE MEDICARE xxxxxxxxxxx 2015- [place], PART A AND Present [place] B Commercial [employer] xxxxxxxx 2015- SUPPLEMENT Present Advance Directives For more information, please contact: [phone] Patient Rug Sizer Explanation Type Date Recorded Advance Directives, Living Will and Medical Power of Signal Maintainer Helper [facility] Advance Directives, 03/26/2018 12:00 AM Living Will and Medical Power of Signal Maintainer Helper
--- OUTSIDE RECORDS SUMMARY | 2018-10-18 13:37 | XMS REPORT | Clinical Summary ---
Author Author [place] [facility] Organization [facility] Address Unknown Phone Unavailable Care Team Providers Care Delinquent Tax Collector Name Role Phone Gurvinder Barfield DO PCP [...] by mouth 0 daily. Fish oil 1200/ [place] 3 350mg Active diphenhydrAMINE Take 25 mg [...] 3 (HCC), MS (multiple (three) times sclerosis) ([facility]) a day. Active estradiol (ESTRACE) 0.01 INSERT [...] MD 10/26/2017 Anesthesia General Surgery Event Erik yDe MD REPLACEMENT OF BACLOFEN PUMP 10/26/2017 Surgery [...] 36.4 C (97.6 F) 04/20/2018 1:41 PM TABULATING MACHINE MECHANIC Temperature 16 04/20/2018 1:41 PM TABULATING MACHINE MECHANIC Respiratory Rate 100% 04/20/2018 1:41 PM TABULATING MACHINE MECHANIC Oxygen Saturation - - Inhaled Oxygen Concentration 71.2 kg (157 lb) 10/26/2017 10:14 AM CDT Weight 182.9 cm (6') 10/26/2017 10:14 AM CDT Height 21.29 10/26/2017 10:14 AM CDT Body Mass Index Plan of Treatment Care Team Description Date Type Specialty Ally Bhagat MD [address] [facility] [address] [place] [address] [phone] 11/13/2018 Office Visit Obstetrics and Gynecology Ally Bhagat MD [address] [facility] [address] [place] [address] [phone] 11/13/2018 Appointment Radiology Yue Robins MD [address] [facility] [address] [place] [address] [phone] 12/11/2018 Office Visit Urology Marie Guerra MD [address] [facility] [address] [place] [address] [phone] 01/14/2019 Clinical Physical Medicine and Support Rehabilitation Health Maintenance Due Date Last Done Comments COLONOSCOPY SCREENING 2011 SHINGLES VACCINES (#1) 2011 INFLUENZA VACCINE 09/20/2018 BREAST CANCER SCREENING 02/24/2020 02/23/2018, 01/15/2018 CERVICAL CANCER SCREENING 12/07/2020 12/07/2017 Implants Device Identifier Shelf Expiration Date Model / Serial / Lot Implanted Type Area Manufactur er 12/17/2018 [id number] / [id number] / [id number] Pump Infsn Synchromed Ii W/ Fltr Neurosurgi N/A: N/A [employer] Sut Loop Prgrmbl Rsvr 40ml - griselda NEUROMODUL [id number] Implants ATION Implanted: 10/26/2017 at [facility] (Quantity not on file) Procedures Comments Procedure Name Priority Date/Time Associated Diagnosis VA ANALYZE INFUSN Routine 10/17/2018 MS (multiple sclerosis) PUMP+REPROGRAM 1:45 PM CDT (HCC) Spastic tetraplegia (HCC) VA ELECT ANLYS IMPLT Routine 10/17/2018 MS (multiple sclerosis) ITHCL/EDRL SUPPLY REQUIREMENTS OFFICER 1:45 PM CDT (HCC) W/REPRG&REFILL Spastic tetraplegia (HCC) VA ELECT ANLYS IMPLT Routine 07/11/2018 MS (multiple sclerosis) ITHCL/EDRL SUPPLY REQUIREMENTS OFFICER 1:30 PM CDT (HCC) W/REPRG&REFILL Spastic tetraplegia (HCC) FL CYSTOGRAM MINIMUM 3 VW Routine 04/20/2018 12:00 PM TABULATING MACHINE MECHANIC ANESTHESIA INTUBATION Routine 04/20/2018 10:22 AM TABULATING MACHINE MECHANIC Procedure Note - Matteo Mcwilliams DO - 04/20/2018 10:22 AM TABULATING MACHINE MECHANIC Airway Performed by: Matteo Mcwilliams DO Authorized [...] LMA placement CYSTOSCOPY 04/20/2018 Hydronephrosis 10:14 AM TABULATING MACHINE MECHANIC Vaginal discharge Case Notes TF ~ 1000, REQ 0730 START Special Needs TF ~ 1000, REQ 0730 START, EST 1HR CT RENAL STONE PROTOCOL Routine 04/09/2018 Neurogenic bladder 5:29 PM TABULATING MACHINE MECHANIC VA ANALYZE INFUSN Routine 04/09/2018 Spastic tetraplegia (HCC) PUMP+REPROGRAM 2:30 PM TABULATING MACHINE MECHANIC VA ELECT ANLYS IMPLT Routine 04/09/2018 Spastic tetraplegia (HCC) ITHCL/EDRL SUPPLY REQUIREMENTS OFFICER 2:30 PM TABULATING MACHINE MECHANIC W/REPRG&REFILL SURGICAL PATHOLOGY Routine 03/26/2018 REQUEST 2:09 PM TABULATING MACHINE MECHANIC US BREAST BIOPSY RIGHT Routine 03/26/2018 Breast mass, right 11:40 AM TABULATING MACHINE MECHANIC US BREAST COMPLETE RIGHT Routine 02/23/2018 Mass of upper inner 2:59 PM TABULATING MACHINE MECHANIC quadrant of right breast Breast mass, right BASIC METABOLIC PANEL Routine 01/15/2018 Neurogenic bladder 5:19 PM TABULATING MACHINE MECHANIC MAMMO SCREENING W CAD Routine 01/15/2018 Encounter for screening BILATERAL 2:17 PM TABULATING MACHINE MECHANIC mammogram for malignant neoplasm of breast VA ANALYZE INFUSN Routine 01/15/2018 Multiple sclerosis (HCC) PUMP+REPROGRAM 2:15 PM TABULATING MACHINE MECHANIC Spastic tetraplegia (HCC) VA ELECT ANLYS IMPLT Routine 01/15/2018 Multiple sclerosis (HCC) ITHCL/EDRL SUPPLY REQUIREMENTS OFFICER 2:15 PM TABULATING MACHINE MECHANIC Spastic tetraplegia (HCC) W/REPRG&REFILL SURGICAL PATHOLOGY Routine 10/26/2017 REQUEST 3:00 PM CDT OR FL < 1 HOUR Routine 10/26/2017 12:50 PM CDT VA AN ELECTIVE Routine 10/26/2017 SUPRAGLOTTIC AIRWAY 12:47 [...] Reprogram Type:Pump interrogated and dosing changed Estimated VELASQUEZ: 70months Current Total Daily Dose: 733.6 Current Dose Type: flex Current Bolus: no current bolus Current Bolus Details: Estimated residual volume (mL):40 Dose change:Increase Dose change (%):5 New Total Daily Dose:770.6flex New Bolus: no new bolus New Bolus Details: Alarm Date:01/23/2019 Post-procedure details: Patient tolerance of procedure:Tolerated well, no immediate complications Comments: Please see high school library media specialist for detailed ITB pump report. * FL Cystogram Minimun 3 Views (04/20/2018 12:00 PM TABULATING MACHINE MECHANIC) Specimen Narrative Performed At IMPRESSION:C-arm Fluoroscopy under 1 hour was provided in the OR for the [facility] referring physician.A radiologist was not present during the procedure. Refer to the Operative report issued by the performing provider for procedure details. [facility]-[id number] Procedure Note Interface, Radiology Results Incoming - 04/20/2018 4:34 PM TABULATING MACHINE MECHANIC IMPRESSION: C-arm Fluoroscopy under 1 hour was provided in the OR for the referring physician. A radiologist was not present during the procedure. Refer to the Operative report issued by the performing provider for procedure details. [facility]-[id number] Performing Organization Address City/State/Zipcode Phone Number [facility] [address] [place] [address] * CT Renal Stone Protocol (04/09/2018 5:29 PM TABULATING MACHINE MECHANIC) Specimen Narrative Performed At Examination:CT RENAL STONE PROTOCOL [facility] Clinical history:"N31.9 Neuromuscular dysfunction of bladderunspecified, fever" [...] mass is seen. The bones are osteopenic. [id number] Procedure Note Hm Interface, Radiology Results Incoming - 04/09/2018 5:51 PM TABULATING MACHINE MECHANIC Examination: CT RENAL STONE PROTOCOL Clinical history: [...] mass is seen. The bones are osteopenic. [facility]-[id number] Performing Organization Address City/[facility]/Zipcode Phone Number [facility] [address] [place] [address] * Surgical pathology request (03/26/2018 2:09 PM TABULATING MACHINE MECHANIC) Only the most recent of 2 results within the time period is included. [facility] DEPARTMENT OF PATHOLOGY AND GENOMIC MEDICINE Surgical See link below for PDF Lab [facility] DEPARTMENT pathology Report OF PATHOLOGY report AND GENOMIC MEDICINE Result status This is Final Report for [facility] DEPARTMENT [id number] OF PATHOLOGY AND GENOMIC MEDICINE Specimen Performing Organization Address City/[facility]/Zipcode Phone Number [facility] DEPARTMENT OF [address] [place] [address] PATHOLOGY AND GENOMIC MEDICINE * US Breast Biopsy Right (03/26/2018 11:40 AM TABULATING MACHINE MECHANIC) Specimen Narrative Performed At PROCEDURE: KAIN US [...] breast are complete.Final pathology report is pending. [id number] Performing Organization Address City/State/Zipcode Phone Number [facility] [address] [place] [address] * US Breast Complete Right (02/23/2018 2:59 PM TABULATING MACHINE MECHANIC) Specimen Narrative Performed At PROCEDURE: US BREAST [...] RECOMMEND TISSUE DIAGNOSIS [id number] Performing Organization Address City/[facility]/Zipcode Phone Number [facility] [address] [place] [address] * Basic metabolic panel (01/15/2018 5:19 PM TABULATING MACHINE MECHANIC) Glucose 106 (H) 65 - 99 mg/dL [facility] Comment: DIAGNOSTICS Fasting [place] reference interval For someone without known diabetes, a glucose value between 100 and 125 mg/dL is consistent with prediabetes and should be confirmed with a follow-up test. BUN, whole 9 7 - 25 mg/dL [employer] blood DIAGNOSTICS [place] Creatinine 0.23 (L) 0.50 - 1.05 mg/dL [facility] Comment: DIAGNOSTICS For patients >49 years of age, [place] the reference limit for Creatinine is approximately 13% higher for people identified as -[place]. EGFR Non-Afr. 140 > OR=60 [facility] [place] mL/min/1.73m2 [facility] EGFR 162 > OR=60 [facility] [place] mL/min/1.73m2 [facility] BUN/creatinine 39 (H) 6 - 22 (calc) [facility] ratio [facility] Sodium 140 135 - 146 mmol/L [facility] Potassium 4.5 3.5 - 5.3 mmol/L [facility] [place] Chloride 97 (L) 98 - 110 mmol/L [employer] DIAGNOSTICS [place] CO2 32 20 - 32 mmol/L [employer] [facility]AGNOSTICS [place] Calcium 9.2 8.6 - 10.4 mg/dL [employer] [place] Specimen Blood Resulting Agency Comment Performing Organization Information: Site ID: [id number] Name: [facility] Lab Address: [address] [place] [address] Director: Ariana Herrera Performing Organization Address City/[facility]/Zipcode Phone Number [facility] [employer] [place] [address] [place] [address] * Mammo Screening w Cad Bilateral (01/15/2018 2:17 PM TABULATING MACHINE MECHANIC) Specimen Addenda Addendum by Sadaf Mackay MD [...] ultrasound. This facility is accredited by The [place] [employer] for Mammography. A negative x-ray report should not delay biopsy if a dominant or clinically suspicious mass is present. Not all cancers are identified by x-ray. [id number] Procedure Note Interface, Radiology Results Incoming - 01/15/2018 2:50 PM TABULATING MACHINE MECHANIC PROCEDURE: MAMMO SCREENING W CAD BILATERAL Computer-assisted [...] ultrasound. This facility is accredited by The [place] [employer] for Mammography. A negative x-ray report should not delay biopsy if a dominant or clinically suspicious mass is present. Not all cancers are identified by x-ray. [id number] Performing Organization Address City/[facility]/Zipcode Phone Number [facility] [address] [place] [address] * OR [place] < 1 Hour (10/26/2017 [...] performing the procedure. [id number] Performing Organization Address City/[facility]/Zipcode Phone Number [facility] [address] [place] [address] after 10/17/2017 Insurance Type Payer Benefit Subscriber ID Effective Phone Address Plan / Dates Group Medicare MEDICARE MEDICARE xxxxxxxxxxx 2015- [place], PART A AND Present [place] B Commercial [employer] xxxxxxxx 2015- SUPPLEMENT Present Advance Directives For more information, please contact: [phone] Patient Supply Requirements Officer Explanation Type Date Recorded Advance Directives, Living Will and Medical Power of Pre Sales Architect [facility] Advance Directives, 03/26/2018 12:00 AM Living Will and Medical Power of Pre Sales Architect
--- OUTSIDE RECORDS SUMMARY | 2018-10-18 13:37 | XMS REPORT | Clinical Summary ---
Author Author FREDI [facility] Address Unknown Phone Unavailable Care Team Providers Care Gi Physician Name Role Phone Pcp, No PCP Unavailable [...] Routine 04/04/2018 Multiple sclerosis (HCC) 3:36 PM OBSERVER GRAVITY PROSPECTING Loss of consciousness (HCC) after 10/17/2017 Results * EEG Awake & Drowsy (04/04/2018 3:36 PM OBSERVER GRAVITY PROSPECTING) Specimen Narrative Performed At [facility] EEG REPORT GE RIS DATE OF TEST: 04-04-2018 DATE OF REPORT: 04-04-2018 ACC: [id number] EE2 Start time: 15:01 Stop time: 15:32 ICD-10: R56.9 CPT Code: 78786 HISTORY: 58 yo female with past medical [...] External Ris In - 04/04/2018 4:10 PM OBSERVER GRAVITY PROSPECTING [facility] EEG REPORT DATE OF TEST: 04-04-2018 DATE OF REPORT: 04-04-2018 ACC: [id number] EE2 Start time: 15:01 Stop time: 15:32 ICD-10: R56.9 CPT Code: 01957 HISTORY: 58 yo female with past medical [...] Group MEDICARE MEDICARE A xxxxxxxxxxx Medicare B [facility] xxxxxxxx PPO PPO Advance Directives Patient has advance care planning documents, and code status on file. For more i nformation, please contact: [facility] [address] [place] [address] Date Inactivated Comments Code Status Date Activated 04/29/2013 5:09 PM All possible means of support, including: cardiac massage, mechanical ventilation, and defibrillation will be used to support life. Code ONE 04/26/2013 9:51 PM
[2018-10-18] MEDS ORDERED: SODIUM CHLORIDE 0.9% 1000ML 1,000 ML IV STA (13:48)
[2018-10-18 14:20] LABS: BASOPHILS % 0.4 % (0.0-1.0); EOSINOPHILS # (AUTO) 0.2 (0.0-0.4); EOSINOPHILS % 2.6 % (0.0-6.0); HEMATOCRIT 48.1 % (34.2-44.1); HEMOGLOBIN 15.8 g/dL (12.0-16.0); LYMPHOCYTES # (AUTO) 1.6 (1.0-3.2); MEAN CORPUSCULAR HEMOGLOBIN 31.5 pg (28-32); MEAN CORPUSCULAR HGB CONC 32.8 g/dL (31-35); MEAN CORPUSCULAR VOLUME 95.8 fL (81-99); MONOCYTES # (AUTO) 0.7 (0.2-0.8); MONOCYTES % 7.7 % (4.4-11.3); NEUTROPHILS # (AUTO) 6.3 (2.1-6.9); PLATELET COUNT 310 x10e3/uL (140-360); RED BLOOD COUNT 5.02 x10e6/uL (3.6-5.1); RED CELL DISTRIBUTION WIDTH 13.3 % (11.7-14.4)
[2018-10-18 14:25] LABS: BILIRUBIN,URINE NEGATIVE (NEGATIVE); CLARITY,URINE CLOUDY (CLEAR); COLOR,URINE YELLOW (YELLOW); KETONES,URINE NEGATIVE (NEGATIVE); LEUKOCYTE ESTERASE ,URINE LARGE (NEGATIVE); NITRITE,URINE NEGATIVE (NEGATIVE); PROTEIN,URINE DIPSTICK NEGATIVE (NEGATIVE); URINE UROBILINOGEN 0.2 mg/dL (0.2 - 1)
[2018-10-18 14:30] LABS: INR 0.86; PROTHROMBIN TIME 12.2 seconds (11.9-14.5)
[2018-10-18 14:31] LABS: PARTIAL THROMBOPLASTIN TIME 26.9 seconds (23.8-35.5)
[2018-10-18 14:39] LABS: ALANINE AMINOTRANSFERASE 24 IU/L (0-55); ALBUMIN/GLOBULIN RATIO 0.8 (0.8-2.0); ALKALINE PHOSPHATASE 138 IU/L (40-150); ANION GAP 14.4 mmol/L (8-16); BLOOD UREA NITROGEN 10 mg/dL (7-26); BUN/CREATININE RATIO 22 (6-25); CALCIUM 9.6 mg/dL (8.4-10.2); CARBON DIOXIDE 32 mmol/L (22-29); CHLORIDE 100 mmol/L (98-107); CREATINE KINASE 61 IU/L (29-168); CREATININE, SERUM 0.46 mg/dL (0.57-1.11); EST GLOMERULAR FILTRATION RATE > 60 ML/MIN (60-); GLUCOSE 88 mg/dL (74-118); LIPASE 42 U/L (8-78); MAGNESIUM 2.5 MG/DL (1.3-2.1); POTASSIUM 4.4 mmol/L (3.5-5.1); SODIUM 142 mmol/L (136-145)
--- NOTE | 2018-10-18 14:49 | NUR ---
RT CALLED AND NOTIFIED FOR ABG DRAW.
[2018-10-18] MEDS ORDERED: CEFTRIAXONE SOD 1 GM/NS 50 ML 50 ML IV ONE (14:53)
[2018-10-18] MEDS ORDERED: LEVOFLOXACIN 500 MG TAB PO ONE (15:00)
--- NOTE | 2018-10-18 15:00 | Diagnostic Imaging Report ---
Exam: Chest one view Comparison: May 05, 2017 Clinical history: Altered mental status Findings: There is mild cardiomegaly. Mild bibasilar atelectasis are noted. There is no evidence of pleural effusion or pneumothorax. The regional osseous structures are unchanged. Signed by: Dr. Yung Elizabeth MD on 10/18/2018 2:56 PM
[2018-10-18 15:06] LABS: AMORPHOUS SEDIMENT,URINE MODERATE (FEW); BACTERIA,URINE MANY /HPF; EPITHELIAL CELLS,URINE MODERATE /LPF; WBC,URINE (MAN) 21-50 /HPF (0-5)
[2018-10-18 15:27] LABS: ABG HCO3 34 mmol/L (23-28); ABG PCO2 58 mmHg (41-51); ABG PH 7.38 (7.31-7.41); ABG PO2 66 mmHg (80-105)
[2018-10-18 16:19] LABS: THYROID STIMULATING HORMONE 0.643 uIU/mL (0.350-4.940)
--- NOTE | 2018-10-18 17:29 | NUR ---
[facility] CALLED FOR TRANSPORT HOME
== END 2018-10-18 19:03 | disposition home or self-care (01) ==
LOC: ER 13:34
DX: G35 Multiple sclerosis (principal); R53.1 Weakness; K59.09 Other constipation; F32.9 Major depressive disorder, single episode, unspecified; Z87.440 Personal history of urinary (tract) infections; Z79.2 Long term (current) use of antibiotics; Z93.6 Other artificial openings of urinary tract status; I10 Essential (primary) hypertension; Z74.01 Bed confinement status
CPT/HCPCS: 36415; 36600; 71045; 80053; 81001; 82550; 82553; 82805; 83605; 83690; 83735; 83880; 84443; 84484; 85025; 85610; 85730; 87040; 87086; 87186; 93005; 99284

== ENCOUNTER → 2019-01-22 | Outpatient (CLI) | payer MEDICARE, OTHER ==
--- NOTE | 2019-01-22 16:46 | Diagnostic Imaging Report ---
EXAM: US RENAL RETROPERITONEAL COMP DATE: 01/22/2019 3:15 PM INDICATION: Neurogenic bladder COMPARISON: CT abdomen/pelvis without contrast from 05/07/2017 FINDINGS: The right kidney is normal in size measuring 12.0 x 4.8 x 5.6 cm with cortical thickness of 1.4 cm. Cortical echogenicity is within normal limits. There is no evidence for solid renal mass, hydronephrosis, or shadowing calculi. The left kidney is normal in size measuring 10.4 x 5.6 x 5.5 cm with cortical thickness of 1.7 cm. Cortical echogenicity is within normal limits. There is no evidence for solid renal mass, hydronephrosis, or shadowing calculi. The urinary bladder is collapsed around a Lazo catheter. IMPRESSION: Unremarkable sonographic appearance of the kidneys. Signed by: Dr. Edil Man MD on 01/22/2019 4:43 PM
--- NOTE | 2019-01-22 17:10 | Diagnostic Imaging Report ---
EXAM: ABDOMEN-1VIEW (KUB) DATE: 01/22/2019 3:58 PM INDICATION: Constipation COMPARISON: None FINDINGS: Spinal stimulator device noted overlying the right abdominal wall with lead extending into the thoracolumbar spine. Bowel gas pattern appears nonspecific but nonobstructive. Air and stool noted within the colon. A moderate amount of stool is noted within the colon, particularly within the distal colon/rectum. No intraperitoneal free air is appreciated on this supine view examination. No abnormal intra-abdominal calcification is appreciated. Bony mineralization appears diffusely decreased. The osseous structures demonstrate degenerative changes without evidence for acute abnormality. The surrounding soft tissues are unremarkable. IMPRESSION: Abundant amount of stool noted within the colon, particularly within the distal colon. Recommend correlation for constipation/impaction. Signed by: Dr. Edil Man MD on 01/22/2019 5:07 PM
== END ==
LOC: US 15:49
PROVIDERS: ATTEND Physician Assistant
DX: K59.09 Other constipation (principal); N31.9 Neuromuscular dysfunction of bladder, unspecified
CPT/HCPCS: 74018; 76770

== ENCOUNTER → 2019-01-29 | Outpatient (CLI) | payer MEDICARE, OTHER ==
[~2019-01-29] MED LIST changes: +DIATRIZOATE MEGL/DIATRIZOA SOD 30 ML BTL PO ONE; +IOPAMIDOL 370 MG/ML 200 ML INFUS..BTL INJ ONE; +SODIUM CHLORIDE 0.9% 50ML 50 ML ONE
[2019-01-29 15:13] LABS: BLOOD UREA NITROGEN 12 mg/dL (7-26); BUN/CREATININE RATIO 21 (6-25); CREATININE, SERUM 0.56 mg/dL (0.57-1.11); EST GLOMERULAR FILTRATION RATE > 60 ML/MIN (60-)
--- NOTE | 2019-01-29 17:56 | Diagnostic Imaging Report ---
EXAMINATION: CT of the abdomen and pelvis with contrast. TECHNIQUE: Spiral CT images of the abdomen and pelvis were performed from the lung bases to the lesser trochanters after the intravenous administration of 100 cc of Isovue 370 and the oral administration of dilute Gastrografin. Coronal and sagittal reformatted images were obtained. COMPARISON: KUB 01/22/2019, CT abdomen and pelvis 05/07/2017 CLINICAL HISTORY:Constipation DISCUSSION: ABDOMEN/PELVIS: LOWER THORAX:Stable linear scarring and bronchiectatic changes in the bilateral lower lobes. No consolidation. Atherosclerotic calcification of the thoracic aorta.. HEPATOBILIARY: 4 mm hypodense lesions in hepatic segment (series 2, image 34 and coronal image 57), which are too small to characterize , but likely represent small cysts. No other focal hepatic lesions. No intra or extrahepatic biliary ductal dilation. GALLBLADDER: Questionable punctate stone in the gallbladder fundus (series 2, image 40). Linear ossification in the gallbladder wall (coronal image 41). No wall thickening. SPLEEN: No splenomegaly. PANCREAS: No focal masses or ductal dilatation. ADRENALS: Stable 3.0 x 2.2 cm low-density lesion in the left adrenal gland, which measure less than 10 Houns[address] units on prior CT noncontrast 05/07/2017, consistent with a benign, lipid rich adenoma. Right adrenal gland is unremarkable. KIDNEYS/URETERS: No hydronephrosis, stones, or solid mass lesions. Bilateral extrarenal pelves. Stable 2.1 cm fluid density partially exophytic simple cyst in the left superior pole (series 2, image 16). PELVIC ORGANS/BLADDER: Bladder is decompressed. Suprapubic catheter in place. Moderate circumferential bladder wall thickening. 2.0 x 2.0 cm oval-shaped intraluminal structure which measures fat density appears to be located in the right anterior aspect of the bladder lumen (series 2, image 75). This is at the expected location of a previously localized suprapubic catheter on CT dated 05/07/2017. Uterus is atrophic. No adnexal masses. PERITONEUM/RETROPERITONEUM: No free air or fluid. LYMPH NODES: No intra-abdominal, retroperitoneal, pelvic or inguinal lymphadenopathy. VESSELS: The celiac trunk,superior and inferior mesenteric and bilateral renal arteries are patent The portal, superior mesenteric and splenic veins are patent. Atherosclerotic calcification of the distal abdominal aorta and proximal iliac vessels. GI TRACT: Moderate to large amount of retained stool predominantly in the sigmoid and descending colon, which results in mild dilation of the sigmoid measuring 7.2 cm in AP diameter (sagittal image 74), and mild circumferential wall thickening and mild stranding. There is also mild to moderate wall thickening involving the rectum (for example series 2, image 85). Rest of the bowel shows no dilation. Contrast is noted predominantly in the distal small bowel, ascending and transverse colon. BONES AND SOFT TISSUE: Generalized osteopenia. No aggressive lytic lesions. Baclofen pump is noted in the subcutaneous soft tissues of the right lower abdominal wall, with catheter tip outside the field of view in the thoracic spinal canal. IMPRESSION: 1. Findings in the sigmoid suggestive of stercoral colitis. Although no proximal small bowel dilation is noted, impaction is a diagnostic consideration. 2. Indeterminate 2.0 cm fat density structure which appears to be located in the right anterior aspect of the bladder lumen. This may represent invagination of peritoneal fat in area of prior suprapubic catheter insertion and less likely a lipoma. 3. Moderate circumferential bladder wall thickening greater than expected for degree of underdistention. Correlate for cystitis. 4. Stable 3.0 cm left adrenal benign, lipid rich adenoma. Signed by: Dr. Brad Flores M.D. on 01/29/2019 5:52 PM
== END ==
LOC: CT 14:15
PROVIDERS: ATTEND Family Medicine
DX: K59.00 Constipation, unspecified (principal)
CPT/HCPCS: 36415; 74177; 82565; 84520; Q9967

== ENCOUNTER → 2019-02-08 | Outpatient (CLI) | payer MEDICARE, OTHER ==
[~2019-02-08] MED LIST changes: +ASPIR 8181 MG PO; +B-121000 MC2 PO; +BISACODYL5 MG RC; +CALCIUM600 MG PO; +COPAXONE20 MG/KIT IJ; +CRANBERRY EXTRAC1 GM PO; +CULTURELLE1 EAC1; +D3 DOTS2000 UNIT; -DIATRIZOATE MEGL/DIATRIZOA SOD 30 ML BTL PO ONE; +HYDROXYZINE HCL25 MG PO; -IOPAMIDOL 370 MG/ML 200 ML INFUS..BTL INJ ONE; +KEFLEX500 MG; +LORAZEPAM2 MG/1 M1 PO; +METHENAMINE HIPP1 GM PO; +MIRTAZAPINE15 MG PO; +POTASSIUM GLUC500 GM PO; -SODIUM CHLORIDE 0.9% 50ML 50 ML ONE; +TRAZODONE HCL50 MG PO
--- NOTE | 2019-02-08 16:38 | Diagnostic Imaging Report ---
EXAMINATION: KNEE RIGHT THREE VIEWS INDICATION: Right knee pain COMPARISON: Bilateral knee radiographs of 09/04/2018 FINDINGS: No acute fracture or dislocation. Old healed angulated distal right femur fracture. Trace joint effusion. Mild tricompartmental degenerative changes. Soft tissue swelling along the medial aspect of the knee. IMPRESSION: Right knee soft tissue swelling, more prominent along the medial aspect. No acute osseous injury. Healed angulated distal femur fracture deformity. Signed by: Abdoul Justice MD on 02/08/2019 4:35 PM
== END ==
LOC: RAD 14:11
PROVIDERS: ATTEND Family Medicine
DX: M25.561 Pain in right knee (principal)

== ENCOUNTER 2019-02-26 17:01 | Inpatient (IN) | payer MEDICARE, OTHER ==
[~2019-02-26] VITALS: Ht 182.9 cm; Wt 70.3 kg
[~2019-02-26 17:01] MED LIST changes: -ASPIR 8181 MG PO; -B-121000 MC2 PO; -BISACODYL5 MG RC; -CALCIUM600 MG PO; -COPAXONE20 MG/KIT IJ; -CRANBERRY EXTRAC1 GM PO; -CULTURELLE1 EAC1; -D3 DOTS2000 UNIT; -HYDROXYZINE HCL25 MG PO; -KEFLEX500 MG; -LORAZEPAM2 MG/1 M1 PO; -METHENAMINE HIPP1 GM PO; -MIRTAZAPINE15 MG PO; -POTASSIUM GLUC500 GM PO; -TRAZODONE HCL50 MG PO
[2019-02-26] MEDS ORDERED: SODIUM CHLORIDE 0.9% 1000ML 1,000 ML IV STA ×2 (18:25→20:50)
[2019-02-26] MEDS ORDERED: ACETAMINOPHEN 325 MG TAB PO NR (18:25)
[2019-02-26] MEDS ORDERED: VANCOMYCIN 1GM/NS 250 ML 250 ML IV ONE (18:30)
[2019-02-26] MEDS ORDERED: CEFEPIME HCL 2 GM VIAL IV ONE (18:30)
[2019-02-26] MEDS ORDERED: ACETAMINOPHEN 325 MG TAB ONE (18:40)
[2019-02-26] MEDS ORDERED: CEFEPIME 2 GM/NS 0.9% 100 ML 100 ML IV ONE ×2 (18:46→20:00)
[2019-02-26 19:11] LABS: BASOPHILS # (AUTO) 0.1 (0.0-0.1); BASOPHILS % 0.3 % (0.0-1.0); EOSINOPHILS # (AUTO) 0.1 (0.0-0.4); EOSINOPHILS % 0.3 % (0.0-6.0); HEMATOCRIT 50.5 % (34.2-44.1); HEMOGLOBIN 16.8 g/dL (12.0-16.0); LYMPHOCYTES # (AUTO) 1.3 (1.0-3.2); MEAN CORPUSCULAR HEMOGLOBIN 31.2 pg (28-32); MEAN CORPUSCULAR HGB CONC 33.3 g/dL (31-35); MEAN CORPUSCULAR VOLUME 93.7 fL (81-99); MONOCYTES % 4.7 % (4.4-11.3); NEUTROPHILS # (AUTO) 18.9 (2.1-6.9); NEUTROPHILS % 88.3 % (38.7-80.0); PLATELET COUNT 407 x10e3/uL (140-360); RED BLOOD COUNT 5.39 x10e6/uL (3.6-5.1); RED CELL DISTRIBUTION WIDTH 13.5 % (11.7-14.4)
[2019-02-26 19:21] LABS: INR 0.88; PROTHROMBIN TIME 12.4 seconds (11.9-14.5)
[2019-02-26 19:22] LABS: PARTIAL THROMBOPLASTIN TIME 29.2 seconds (23.8-35.5)
[2019-02-26 19:31] LABS: ALANINE AMINOTRANSFERASE 25 IU/L (0-55); ALBUMIN/GLOBULIN RATIO 0.8 (0.8-2.0); ALKALINE PHOSPHATASE 156 IU/L (40-150); ANION GAP 15.2 mmol/L (8-16); BLOOD UREA NITROGEN 10 mg/dL (7-26); BUN/CREATININE RATIO 18 (6-25); CALCIUM 9.3 mg/dL (8.4-10.2); CARBON DIOXIDE 29 mmol/L (22-29); CHLORIDE 95 mmol/L (98-107); CREATINE KINASE 76 IU/L (29-168); CREATININE, SERUM 0.55 mg/dL (0.57-1.11); EST GLOMERULAR FILTRATION RATE > 60 ML/MIN (60-); GLUCOSE 121 mg/dL (74-118); POTASSIUM 4.2 mmol/L (3.5-5.1); SODIUM 135 mmol/L (136-145)
--- NOTE | 2019-02-26 19:53 | Diagnostic Imaging Report ---
EXAMINATION: CHEST SINGLE (PORTABLE) INDICATION: ^Sepsis look for PNA, effusions ^[id number] ^1932 COMPARISON: 02/24/2019 FINDINGS: AP view TUBES and LINES: None. LUNGS: Lungs are well inflated. Vascular congestion and mild interstitial edema. PLEURA: No significant pleural effusion or pneumothorax. HEART AND MEDIASTINUM: The cardiomediastinal silhouette is unremarkable. BONES AND SOFT TISSUES: No acute osseous lesion. Thoracic spine scoliosis. Soft tissues are unremarkable. UPPER ABDOMEN: No free air under the diaphragm. IMPRESSION: Pulmonary vascular congestion and mild interstitial edema. Underlying pneumonia cannot be excluded. Signed by: Dr. Brian Cantu MD on 02/26/2019 7:50 PM
[2019-02-26 20:25] LABS: BILIRUBIN,URINE NEGATIVE (NEGATIVE); CLARITY,URINE CLEAR (CLEAR); COLOR,URINE YELLOW (YELLOW); KETONES,URINE NEGATIVE (NEGATIVE); LEUKOCYTE ESTERASE ,URINE MODERATE (NEGATIVE); NITRITE,URINE POSITIVE (NEGATIVE); PROTEIN,URINE DIPSTICK NEGATIVE (NEGATIVE); URINE UROBILINOGEN 0.2 mg/dL (0.2 - 1)
[2019-02-26 20:38] LABS: BACTERIA,URINE FEW /HPF; EPITHELIAL CELLS,URINE FEW /LPF
[2019-02-26] MEDS ORDERED: SODIUM CHLORIDE 0.9% 1000ML 1,000 ML ONE (20:45)
[2019-02-26] MEDS ORDERED: ONDANSETRON HCL INJ 2MG/ML 2ML 2 MG/ML VIAL IV PRN (21:15)
[2019-02-26] MEDS ORDERED: ASPIRIN 81 MG CHEW TAB PO ONE (21:15)
[2019-02-26] MEDS: VANCOMYCIN HCL 1GM/NS 250 ML BAG IV SCH (21:15)
[2019-02-26] MEDS: ALBUTEROL SULF 0.083% NEB SOLN 3 ML NEB NEB SCH (21:46)
[2019-02-26] MEDS ORDERED: CEFEPIME HCL 2 GM/SOD CHL 0.9% 100 ML BAG IV SCH (22:00)
[2019-02-26] MEDS: SODIUM CHLORIDE 0.9% 1000ML 1,000 ML IV SCH (22:02)
[2019-02-26] MEDS: CEFEPIME 2 GM/NS 0.9% 100 ML 100 ML IV SCH (22:03)
[2019-02-26 22:55] VITALS: BP 137/93
--- NOTE | 2019-02-26 22:55 | NUR ---
Patient received via stretcher from ER accompanied by caregiver. AAO x 3. Patient had no complaints of pain. Respirations even and non-labored on 3L NC. Telemetry records cardiac rhythm as ST @ 102. IVF infusing at 125 cc/hr. Lazo catheter draining cloudy pale yellow urine with sediments. Admission history obtained. Initial physical assessment performed. Fall precautions implemented. Patient/ caregiver instructed to call for assistance when needed. Call light within reach.
[2019-02-26 23:00] VITALS: BP 137/93
[2019-02-26] MEDS: OSELTAMIVIR PHOSPHATE 75 MG CAP PO SCH (23:42)
[2019-02-27] VITALS (10 sets, daily range): BP systolic 108–152; BP diastolic 69–89
--- NOTE | 2019-02-27 01:00 | NUR ---
Patient assisted to a more comfortable position. Caregiver at bedside.
[2019-02-27] MEDS ORDERED: LORAZEPAM2 MG/1 M1 PO (01:48)
[2019-02-27] MEDS ORDERED: ASPIR 8181 MG PO (01:48)
[2019-02-27] MEDS ORDERED: KEFLEX500 MG (01:48)
[2019-02-27] MEDS ORDERED: TRAZODONE HCL50 MG PO (01:48)
[2019-02-27] MEDS ORDERED: MIRTAZAPINE15 MG PO (01:48)
[2019-02-27] MEDS ORDERED: CULTURELLE1 EAC1 (01:48)
[2019-02-27] MEDS ORDERED: BISACODYL5 MG RC (01:48)
[2019-02-27] MEDS ORDERED: METHENAMINE HIPP1 GM PO (01:48)
[2019-02-27] MEDS ORDERED: D3 DOTS2000 UNIT (01:48)
[2019-02-27] MEDS ORDERED: POTASSIUM GLUC500 GM PO (01:48)
[2019-02-27] MEDS ORDERED: NIACIN500 M2 PO (01:48)
[2019-02-27] MEDS ORDERED: COPAXONE20 MG/KIT IJ (01:48)
[2019-02-27] MEDS ORDERED: B-121000 MC2 PO (01:48)
[2019-02-27] MEDS ORDERED: CRANBERRY EXTRAC1 GM PO (01:48)
[2019-02-27] MEDS ORDERED: CALCIUM600 MG PO (01:48)
[2019-02-27] MEDS ORDERED: HYDROXYZINE HCL25 MG PO (01:48)
[2019-02-27] MEDS: ALBUTEROL SULF 0.083% NEB SOLN 3 ML NEB NEB SCH ×6 (02:12→23:20)
[2019-02-27] MEDS: IPRATROPIUM BROMIDE 0.02% 2.5 ML NEB NEB SCH ×5 (02:12→23:20)
--- NOTE | 2019-02-27 02:34 | NUR ---
Patient's BP elevated (167/87) with a HR of (135). Dr. Herrera notified . No new order received. stated to keep the IV fluids infusing.
--- NOTE | 2019-02-27 03:20 | NUR ---
Blood specimen taken to lab for analysis of cardiac enzymes.
[2019-02-27 03:49] LABS: CREATINE KINASE 55 IU/L (29-168)
[2019-02-27] MEDS: ACETAMINOPHEN 325 MG TAB PO PRN ×2 (04:39→20:34)
--- NOTE | 2019-02-27 04:39 | NUR ---
Patient's temp elevated (101.4F). Excessive covering causing to patient to sweat was removed. Tylenol 650 mg administered per eMAR. Will continue to monitor.
[2019-02-27] MEDS: SODIUM CHLORIDE 0.9% 1000ML 1,000 ML IV SCH ×2 (05:01→11:56)
--- NOTE | 2019-02-27 05:59 | NUR ---
Patient's temp re-checked and recorded as 98.1F.
[2019-02-27 06:01] LABS: BASOPHILS # (AUTO) 0.1 (0.0-0.1); BASOPHILS % 0.3 % (0.0-1.0); HEMATOCRIT 46.9 % (34.2-44.1); HEMOGLOBIN 15.2 g/dL (12.0-16.0); LYMPHOCYTES # (AUTO) 0.6 (1.0-3.2); LYMPHOCYTES % 2.7 % (18.0-39.1); MEAN CORPUSCULAR HGB CONC 32.4 g/dL (31-35); MEAN CORPUSCULAR VOLUME 95.7 fL (81-99); MONOCYTES % 4.8 % (4.4-11.3); NEUTROPHILS # (AUTO) 18.7 (2.1-6.9); NEUTROPHILS % 91.8 % (38.7-80.0); PLATELET COUNT 305 x10e3/uL (140-360); RED CELL DISTRIBUTION WIDTH 13.3 % (11.7-14.4)
[2019-02-27] MEDS: CEFEPIME 2 GM/NS 0.9% 100 ML 100 ML IV SCH ×3 (06:11→22:09)
[2019-02-27 06:32] LABS: ALANINE AMINOTRANSFERASE 38 IU/L (0-55); ALBUMIN 2.7 g/dL (3.5-5.0); ALBUMIN/GLOBULIN RATIO 0.8 (0.8-2.0); ALKALINE PHOSPHATASE 138 IU/L (40-150); ANION GAP 11.4 mmol/L (8-16); BLOOD UREA NITROGEN 6 mg/dL (7-26); BUN/CREATININE RATIO 15 (6-25); CALCIUM 8.6 mg/dL (8.4-10.2); CARBON DIOXIDE 29 mmol/L (22-29); CHLORIDE 102 mmol/L (98-107); CREATININE, SERUM 0.41 mg/dL (0.57-1.11); EST GLOMERULAR FILTRATION RATE > 60 ML/MIN (60-); GLUCOSE 136 mg/dL (74-118); POTASSIUM 3.4 mmol/L (3.5-5.1); SODIUM 139 mmol/L (136-145)
--- NOTE | 2019-02-27 06:39 | NUR ---
Dr. Driver and Dr. Buck notified of "Routine Consult". Awaiting call back.
--- NOTE | 2019-02-27 06:52 | NUR ---
Patient resting comfortably. No acute distress noted. Shift report given to oncoming nurse about patient's status.
[2019-02-27 07:05] LABS: CREATINE KINASE MB 1.2 ng/mL (0-5.0)
[2019-02-27] MEDS: OSELTAMIVIR PHOSPHATE 75 MG CAP PO SCH ×2 (09:06→17:54)
[2019-02-27 09:25] LABS: LYMPHOCYTES % (MANUAL) 3 % (19-48); NEUTROPHILS % (MANUAL) 97 % (40-74)
[2019-02-27 09:26] LABS: PLATELET ESTIMATE ADEQUATE; PLATELET MORPHOLOGY COMMENT NORMAL; RBC MORPHOLOGY COMMENT NORMAL
[2019-02-27] MEDS ORDERED: POTASSIUM CHLORIDE 20 MEQ TAB CR PO STA (11:53)
[2019-02-27] MEDS ORDERED: BISACODYL 5 MG TAB EC PO PRN (12:00)
[2019-02-27] MEDS ORDERED: BACLOFEN 10 MG TAB PO PRN (12:00)
--- NOTE | 2019-02-27 12:00 | NUR ---
Dr Richard Herrera to bedside; orders rec'd.
[2019-02-27] MEDS ORDERED: POTASSIUM CHLORIDE 10MEQ EA PO ONE (12:15)
[2019-02-27] MEDS: LORAZEPAM 1 MG TAB PO SCH ×2 (12:24→20:26)
[2019-02-27] MEDS ORDERED: GLATIRAMER (COPOLYMER-1) 20 MG SYR SQ SCH (17:00)
[2019-02-27] MEDS: COPAXONE 40 MG SC SCH (17:00)
[2019-02-27 17:37] LABS: CREATINE KINASE 62 IU/L (29-168)
[2019-02-27] MEDS: HYDROXYZINE HCL 25 MG TAB PO SCH (17:54)
--- NOTE | 2019-02-27 19:18 | NUR ---
bed reports received, patient in bed, awake alert oriented. hourly caregiver on bed side. no distress noted, denied any discomfort at this time, will continue to monitor.
[2019-02-27] MEDS: VANCOMYCIN HCL 1GM/NS 250 ML BAG IV SCH (20:26)
[2019-02-27] MEDS: MIRTAZAPINE 15 MG TAB PO SCH (20:26)
[2019-02-27] MEDS: TRAZODONE HCL 50 MG TAB PO SCH (20:26)
--- NOTE | 2019-02-27 22:47 | Consultation ---
DATE OF CONSULTATION: 02/27/2019 REASON FOR CONSULTATION: 1. Pneumonia. 2. Influenza. HISTORY OF PRESENT ILLNESS: This patient who is a 59-year-old white female well known to me, who has history of severe multiple sclerosis, hypertension, depression, upper nasal congestion, allergies before. The patient is pretty much wheelchair bound. She is on baclofen pump. She has urostomy with recurrent bacteriuria, suprapubic catheter, [place] pouch. The patient comes in with fever and chills and shortness of breath and cough. The patient was sent from her PCP because she looked really bad. She has been coughing yellowish sputum. Her caregiver contacted the office, told her she is going to emergency room immediately. In the emergency room she was evaluated she was found to have pneumonia and her flu antigen came back positive. Her white count was 21 so she is being admitted, started on intravenous antibiotic. The patient is currently lying on medical floor. PAST MEDICAL HISTORY: As mentioned above. PAST SURGICAL HISTORY: As mentioned above. ALLERGIES: NKA. SOCIAL HISTORY: There is no smoking, drug abuse, or alcohol abuse. FAMILY HISTORY: Noncontributory. HOME MEDICATIONS: She is on Ativan p.r.n. She is currently on cefepime, Tamiflu, vancomycin. At home she is on Desyrel, niacin, Remeron and baclofen. REVIEW OF SYSTEMS: GENERAL: The patient is short of breath, extremely weak. There is no difficulty with swallowing. She is congested. HEENT: There is no visual, hearing changes. GI: There is no nausea, no vomiting, no diarrhea. CARDIAC: There is no arrhythmia. NEURO: Seizure activity. SKIN: There are no other rashes. LABORATORY DATA: Reviewed. Chart reviewed. Her imaging also reviewed. IMPRESSION AND PLAN: 1. Pneumonia, community acquired. 2. Influenza present on admission with superimposed bacterial pneumonia. 3. Multiple sclerosis. 4. Debility from her bacteria. 5. History of depression. I agree with Tamiflu for 7 days may extend it if she continued to be sick. Agree with cefepime, vancomycin. Review of blood cultures, IV fluid, supportive care, PT, OT, and discussed with the patient for bacteriuria. She is currently on cefepime. 6. Bed ridden. 7. Continue local care. MD JOSE ANTONIO Bernard/CARRIE /[id number] MTDShalini
[2019-02-28] VITALS (9 sets, daily range): BP systolic 86–153; BP diastolic 53–85
[2019-02-28] MEDS: SODIUM CHLORIDE 0.9% 1000ML 1,000 ML IV SCH ×4 (01:49→20:27)
[2019-02-28] MEDS: ALBUTEROL SULF 0.083% NEB SOLN 3 ML NEB NEB SCH ×6 (03:20→23:00)
[2019-02-28] MEDS: ASPIRIN 81 MG CHEW TAB PO SCH (05:29)
[2019-02-28] MEDS: CEFEPIME 2 GM/NS 0.9% 100 ML 100 ML IV SCH ×3 (05:29→22:19)
--- NOTE | 2019-02-28 06:47 | NUR ---
BEDSIDE REPORTS GIVEN TO UPCOMING NURSE. QUESTIONS ANSWERED.
[2019-02-28] MEDS: IPRATROPIUM BROMIDE 0.02% 2.5 ML NEB NEB SCH ×3 (07:10→20:30)
[2019-02-28] MEDS ORDERED: CALCIUM CARBONATE 1200 MG PO SCH (09:00)
[2019-02-28] MEDS ORDERED: CEPHALEXIN 500 MG CAP PO SCH (09:00)
[2019-02-28] MEDS: HYDROXYZINE HCL 25 MG TAB PO SCH ×2 (09:10→17:19)
[2019-02-28] MEDS: DOCUSATE SODIUM 100 MG CAP PO SCH (09:10)
[2019-02-28] MEDS: LORAZEPAM 1 MG TAB PO SCH ×2 (09:10→20:27)
[2019-02-28] MEDS: AMLODIPINE BESYLATE 5 MG TAB PO SCH (09:11)
[2019-02-28] MEDS: NIACIN 500 MG TABSR PO SCH (09:11)
[2019-02-28] MEDS: OSELTAMIVIR PHOSPHATE 75 MG CAP PO SCH ×2 (09:11→17:19)
[2019-02-28] MEDS: MAGNESIUM OXIDE 400 MG TAB PO SCH (09:11)
[2019-02-28] MEDS: OYST-CAL-D 500MG TABLET PO SCH (09:11)
[2019-02-28] MEDS: MIRTAZAPINE 15 MG TAB PO SCH (20:27)
[2019-02-28] MEDS: TRAZODONE HCL 50 MG TAB PO SCH (20:27)
[2019-02-28] MEDS: VANCOMYCIN HCL 1GM/NS 250 ML BAG IV SCH (20:27)
[2019-02-28] MEDS ORDERED: BISACODYL 10 MG SUPP PR PRN (21:00)
--- NOTE | 2019-02-28 21:01 | NUR ---
called and spoke with dr Richard Herrera,patient has respiratory distress, orders obtained. respiratory therapist notified, will continue to monitor.
[2019-03-01] VITALS (8 sets, daily range): BP systolic 100–135; BP diastolic 63–76
--- NOTE | 2019-03-01 01:09 | Consultation ---
DATE OF CONSULTATION: 02/28/2019 Cardiology Consult REASON FOR CONSULT: Tachycardia. CHIEF COMPLAINT: Fevers and cough. HISTORY OF PRESENT ILLNESS: The patient is a 59-year-old female with history of hypertension, multiple sclerosis, wheelchair-bound, history of urostomy, recurrent bacteriuria, suprapubic catheter, who presents with fevers, chills, and shortness of breath, found to be flu positive, noted to be tachycardic, heart rates in the 100 to 115 range. Denies any chest pain. PAST MEDICAL HISTORY: As mentioned above. SOCIAL HISTORY: She does not smoke, drink, or abuse drugs. FAMILY HISTORY: Noncontributory. REVIEW OF SYSTEMS: As per HPI, otherwise negative. HOME MEDICATIONS: Reviewed. ALLERGIES: REVIEWED. PHYSICAL EXAMINATION: VITAL SIGNS: Temperature 99.0, pulse 115, respiratory rate 22, blood pressure 134/83, saturating 96% on 3 L nasal cannula. GENERAL: Middle-aged female, well developed, well nourished. CARDIOVASCULAR: Tachycardic. No murmurs, rubs, or gallops. LUNGS: Bibasilar crackles. ABDOMEN: Soft, nontender, nondistended. NEURO AND PSYCH: Awake and alert. INPATIENT MEDICATIONS: Reviewed. LABORATORY DATA: Reviewed, notable for white count of 21, hemoglobin of 16.8. Creatinine 0.4. Troponins negative x3. BNP is 20. IMAGING DATA: Reviewed. Chest x-ray shows pulmonary vascular congestion with mild interstitial edema, possible pneumonia. TELEMETRY DATA: Reviewed, shows sinus tachycardia. ASSESSMENT: 1. Influenza pneumonia. 2. Sinus tachycardia. PLAN: Continue supportive care for her infection issues including IV fluids. We will get echocardiogram to evaluate LV function, although the chest x-ray was read to be pulmonary edema, more likely to be infection as the patient does not appear volume overloaded, if anything appeared dehydrated. Thank you for this consult. We will continue to follow. MD MICHAEL Coker/CARRIE /[id number]
[2019-03-01] MEDS: IPRATROPIUM BROMIDE 0.02% 2.5 ML NEB NEB SCH ×4 (01:15→19:50)
[2019-03-01] MEDS: ALBUTEROL SULF 0.083% NEB SOLN 3 ML NEB NEB SCH ×6 (03:00→23:15)
[2019-03-01 05:43] LABS: BASOPHILS # (AUTO) 0.1 (0.0-0.1); BASOPHILS % 0.6 % (0.0-1.0); EOSINOPHILS # (AUTO) 0.1 (0.0-0.4); EOSINOPHILS % 0.4 % (0.0-6.0); HEMATOCRIT 44.5 % (34.2-44.1); LYMPHOCYTES # (AUTO) 0.6 (1.0-3.2); LYMPHOCYTES % 3.5 % (18.0-39.1); MEAN CORPUSCULAR HEMOGLOBIN 31.3 pg (28-32); MEAN CORPUSCULAR HGB CONC 31.5 g/dL (31-35); MEAN CORPUSCULAR VOLUME 99.3 fL (81-99); MONOCYTES # (AUTO) 0.7 (0.2-0.8); MONOCYTES % 3.8 % (4.4-11.3); NEUTROPHILS # (AUTO) 16.1 (2.1-6.9); NEUTROPHILS % 91.3 % (38.7-80.0); PLATELET COUNT 258 x10e3/uL (140-360); RED BLOOD COUNT 4.48 x10e6/uL (3.6-5.1); RED CELL DISTRIBUTION WIDTH 13.5 % (11.7-14.4)
[2019-03-01] MEDS: CEFEPIME 2 GM/NS 0.9% 100 ML 100 ML IV SCH ×3 (05:48→23:15)
[2019-03-01] MEDS: ASPIRIN 81 MG CHEW TAB PO SCH (05:48)
[2019-03-01] MEDS: SODIUM CHLORIDE 0.9% 1000ML 1,000 ML IV SCH ×3 (05:54→21:17)
[2019-03-01 06:03] LABS: ANION GAP 14.3 mmol/L (8-16); BLOOD UREA NITROGEN 7 mg/dL (7-26); BUN/CREATININE RATIO 18 (6-25); CALCIUM 8.4 mg/dL (8.4-10.2); CARBON DIOXIDE 23 mmol/L (22-29); CHLORIDE 105 mmol/L (98-107); EST GLOMERULAR FILTRATION RATE > 60 ML/MIN (60-); GLUCOSE 68 mg/dL (74-118); POTASSIUM 3.3 mmol/L (3.5-5.1); SODIUM 139 mmol/L (136-145)
[2019-03-01] MEDS: DOCUSATE SODIUM 100 MG CAP PO SCH (08:58)
[2019-03-01] MEDS: HYDROXYZINE HCL 25 MG TAB PO SCH ×2 (08:58→16:01)
[2019-03-01] MEDS: NIACIN 500 MG TABSR PO SCH (08:58)
[2019-03-01] MEDS: LORAZEPAM 1 MG TAB PO SCH ×2 (08:58→19:24)
[2019-03-01] MEDS: MAGNESIUM OXIDE 400 MG TAB PO SCH (08:58)
[2019-03-01] MEDS: OYST-CAL-D 500MG TABLET PO SCH (08:58)
[2019-03-01] MEDS: AMLODIPINE BESYLATE 5 MG TAB PO SCH (08:58)
[2019-03-01] MEDS: OSELTAMIVIR PHOSPHATE 75 MG CAP PO SCH ×2 (08:58→16:01)
--- NOTE | 2019-03-01 13:23 | Diagnostic Imaging Report ---
EXAMINATION: CHEST SINGLE (PORTABLE) INDICATION: Shortness of breath COMPARISON: Chest radiograph 02/26/2019, 02/24/2019 FINDINGS: LINES/TUBES:EKG leads overlie the chest. LUNGS:The lungs are moderately inflated. Continued interval worsening of bilateral airspace opacities PLEURA:No pleural effusion or pneumothorax. MEDIASTINUM:The cardiomediastinal silhouette appears unchanged in size and shape. BONES/SOFT TISSUES:No acute osseous injury. ABDOMEN:No free air under the diaphragm. IMPRESSION: Continued interval worsening of multifocal bilateral airspace opacities, concerning for multifocal aspiration and/or pneumonia in the setting of fever. Signed by: Abdoul Justice MD on 03/01/2019 1:19 PM
[2019-03-01] MEDS: COPAXONE 40 MG SC SCH (16:01)
[2019-03-01] MEDS: MIRTAZAPINE 15 MG TAB PO SCH (19:24)
[2019-03-01] MEDS: TRAZODONE HCL 50 MG TAB PO SCH (19:24)
[2019-03-01] MEDS: VANCOMYCIN HCL 1GM/NS 250 ML BAG IV SCH (21:17)
[2019-03-02] VITALS (10 sets, daily range): BP systolic 96–127; BP diastolic 59–77
[2019-03-02] MEDS: ALBUTEROL SULF 0.083% NEB SOLN 3 ML NEB NEB SCH ×6 (00:30→19:10)
[2019-03-02] MEDS: IPRATROPIUM BROMIDE 0.02% 2.5 ML NEB NEB SCH ×4 (02:30→19:10)
[2019-03-02] MEDS: ASPIRIN 81 MG CHEW TAB PO SCH (04:32)
[2019-03-02] MEDS: SODIUM CHLORIDE 0.9% 1000ML 1,000 ML IV SCH ×3 (04:32→19:40)
[2019-03-02] MEDS: CEFEPIME 2 GM/NS 0.9% 100 ML 100 ML IV SCH ×3 (04:39→20:25)
[2019-03-02 05:55] LABS: BASOPHILS # (AUTO) 0.2 (0.0-0.1); BASOPHILS % 0.8 % (0.0-1.0); EOSINOPHILS # (AUTO) 0.2 (0.0-0.4); EOSINOPHILS % 0.8 % (0.0-6.0); HEMATOCRIT 45.8 % (34.2-44.1); HEMOGLOBIN 14.1 g/dL (12.0-16.0); LYMPHOCYTES # (AUTO) 0.7 (1.0-3.2); LYMPHOCYTES % 3.2 % (18.0-39.1); MEAN CORPUSCULAR HEMOGLOBIN 30.9 pg (28-32); MEAN CORPUSCULAR HGB CONC 30.8 g/dL (31-35); MEAN CORPUSCULAR VOLUME 100.4 fL (81-99); MONOCYTES % 4.3 % (4.4-11.3); NEUTROPHILS # (AUTO) 20.1 (2.1-6.9); NEUTROPHILS % 89.6 % (38.7-80.0); PLATELET COUNT 235 x10e3/uL (140-360); RED BLOOD COUNT 4.56 x10e6/uL (3.6-5.1); RED CELL DISTRIBUTION WIDTH 14.1 % (11.7-14.4)
[2019-03-02 05:58] LABS: ANION GAP 19.4 mmol/L (8-16); BLOOD UREA NITROGEN 13 mg/dL (7-26); BUN/CREATININE RATIO 28 (6-25); CALCIUM 8.8 mg/dL (8.4-10.2); CARBON DIOXIDE 21 mmol/L (22-29); CHLORIDE 110 mmol/L (98-107); CREATININE, SERUM 0.46 mg/dL (0.57-1.11); EST GLOMERULAR FILTRATION RATE > 60 ML/MIN (60-); GLUCOSE 82 mg/dL (74-118); SODIUM 145 mmol/L (136-145)
[2019-03-02 06:02] LABS: POTASSIUM 5.4 mmol/L (3.5-5.1)
--- NOTE | 2019-03-02 06:42 | NUR ---
CALLED CARDIOLOGY DR FRANCO CASSANDRA ARCHITECT AND NOTIFIED OF POTASSIUM LEVEL 5.4 STATES NO ORDERS WILL COME SEE PATIENT TODAY. WILL CONTINUE TO MONITOR.
--- NOTE | 2019-03-02 06:43 | NUR ---
PAGED DR. WILL TO NOTIFY THAT PTS WBC CT HAS GONE UP TO 22.49 FROM 17.65 AND VANCO TROUGH WAS 3.1. AWAITING CALL BACK FOR ORDERS.
--- NOTE | 2019-03-02 07:55 | NUR ---
informed dr adkins of lab results and increased lethargy, orders received and entered. Will continue to monitor.
[2019-03-02] MEDS: NIACIN 500 MG TABSR PO SCH (08:50)
[2019-03-02] MEDS: HYDROXYZINE HCL 25 MG TAB PO SCH ×2 (08:50→16:29)
[2019-03-02] MEDS: DOCUSATE SODIUM 100 MG CAP PO SCH (08:50)
[2019-03-02] MEDS: LORAZEPAM 1 MG TAB PO SCH ×2 (08:50→19:40)
[2019-03-02] MEDS: MAGNESIUM OXIDE 400 MG TAB PO SCH (08:50)
[2019-03-02] MEDS: AMLODIPINE BESYLATE 5 MG TAB PO SCH (08:51)
[2019-03-02] MEDS: OYST-CAL-D 500MG TABLET PO SCH (08:51)
[2019-03-02] MEDS: OSELTAMIVIR PHOSPHATE 75 MG CAP PO SCH ×2 (08:51→16:30)
[2019-03-02 08:59] LABS: ANISOCYTOSIS SLIGHT; BAND NEUTROPHILS % (MANUAL) 9 %; LYMPHOCYTES % (MANUAL) 5 % (19-48); METAMYELOCYTES % (MANUAL) 1 % (0-0); MONOCYTES % (MANUAL) 3 % (3.4-9.0); NEUTROPHILS % (MANUAL) 82 % (40-74); PLATELET ESTIMATE ADEQUATE; PLATELET MORPHOLOGY COMMENT NORMAL; RBC MORPHOLOGY COMMENT ABNORMAL
[2019-03-02 10:01] LABS: AMYLASE 26 U/L (25-125)
[2019-03-02 10:03] LABS: LIPASE < 4 U/L (8-78)
[2019-03-02] MEDS: METRONIDAZOLE 500MG/NS 100ML 100 ML IV SCH ×2 (13:48→21:47)
[2019-03-02 14:12] LABS: BASOPHILS % 0.1 % (0.0-1.0); EOSINOPHILS % 0.1 % (0.0-6.0); HEMOGLOBIN 13.7 g/dL (12.0-16.0); LYMPHOCYTES # (AUTO) 0.4 (1.0-3.2); LYMPHOCYTES % 1.6 % (18.0-39.1); MEAN CORPUSCULAR HEMOGLOBIN 30.8 pg (28-32); MEAN CORPUSCULAR HGB CONC 29.8 g/dL (31-35); MEAN CORPUSCULAR VOLUME 103.4 fL (81-99); MONOCYTES # (AUTO) 0.9 (0.2-0.8); NEUTROPHILS # (AUTO) 21.4 (2.1-6.9); NEUTROPHILS % 91.5 % (38.7-80.0); PLATELET COUNT 281 x10e3/uL (140-360); RED BLOOD COUNT 4.45 x10e6/uL (3.6-5.1); RED CELL DISTRIBUTION WIDTH 14.1 % (11.7-14.4)
[2019-03-02 14:30] LABS: ANION GAP 25.1 mmol/L (8-16); BLOOD UREA NITROGEN 15 mg/dL (7-26); BUN/CREATININE RATIO 28 (6-25); CALCIUM 8.7 mg/dL (8.4-10.2); CARBON DIOXIDE 16 mmol/L (22-29); CHLORIDE 110 mmol/L (98-107); CREATININE, SERUM 0.54 mg/dL (0.57-1.11); EST GLOMERULAR FILTRATION RATE > 60 ML/MIN (60-); GLUCOSE 99 mg/dL (74-118); POTASSIUM 4.1 mmol/L (3.5-5.1); SODIUM 147 mmol/L (136-145)
[2019-03-02] MEDS ORDERED: SOD POLYSTYRENE SULFONATE SUSP 15 GM/60 ML BTL PR ONE (14:45)
--- NOTE | 2019-03-02 14:58 | Diagnostic Imaging Report ---
EXAMINATION: CHEST X-RAY LINE PLACEMENT COMPARISON: Chest x-ray 03/01/2019 INDICATION: ^PICC placement ^[id number] ^1435 DISCUSSION: Frontal view of the chest obtained at 1434 hours. Right lung base was not imaged. HEART AND MEDIASTINUM: Stable mild cardiomegaly LINES: Right PICC line tip is poorly visualized due to underpenetration of the image and overlapping structures. LUNGS: Multifocal airspace opacities are similar. Retrocardiac airspace opacity is stable. PLEURA: Bilateral pleural effusions are suspected. No pneumothorax. BONES AND SOFT TISSUES: No focal osseous lesion. The soft tissues are normal. IMPRESSION: Right PICC line tip is poorly visualized. No pneumothorax. No significant change in multifocal airspace opacities consistent with pneumonia. Signed by: Dr. Griffin Whipple MD on 03/02/2019 2:54 PM
[2019-03-02 15:28] LABS: LYMPHOCYTES % (MANUAL) 1 % (19-48); MONOCYTES % (MANUAL) 4 % (3.4-9.0); NEUTROPHILS % (MANUAL) 95 % (40-74); PLATELET ESTIMATE ADEQUATE; PLATELET MORPHOLOGY COMMENT NORMAL; RBC MORPHOLOGY COMMENT NORMAL
--- NOTE | 2019-03-02 15:31 | NUR ---
PICC tip is in the SVC per verbal report from Dr Whipple, radiologist. PICC is okay to use
--- NOTE | 2019-03-02 15:41 | Diagnostic Imaging Report ---
EXAMINATION: CHEST X-RAY LINE PLACEMENT COMPARISON: Chest x-ray 1434 hours INDICATION: PICC line placement ^[id number] ^1516 DISCUSSION: Frontal view of the chest obtained at 1522 hours. HEART AND MEDIASTINUM: Stable mild cardiomegaly LINES: Right PICC line terminates in the SVC without pneumothorax LUNGS: Multifocal airspace opacities and bibasilar atelectasis are stable. PLEURA: Bilateral pleural effusions. No pneumothorax. BONES AND SOFT TISSUES: No focal osseous lesion. The soft tissues are normal. IMPRESSION: Right PICC line terminates in the SVC without pneumothorax. No change in pulmonary infiltrates, bibasilar atelectasis, and small effusions. Signed by: Dr. Griffin Whipple MD on 03/02/2019 3:38 PM
--- NOTE | 2019-03-02 16:05 | NUR ---
spoke to Dr. Haji regarding patients code status and advance directive on chart, at this time patient to remain full code due to state of illness not being terminal at this time, and advance directive only addresses terminal status, family informed of MD decision
--- NOTE | 2019-03-02 16:57 | Diagnostic Imaging Report ---
CT chest, abdomen and pelvis with intravenous contrast Indication: Multifocal pneumonia, history of [place] pouch ^fever/ r/o infection ^[id number] ^1542 ^Y Technique: Thin collimation axial images obtained from the thoracic inlet to the level of the pubic symphysis following the uneventful administration of 100 cc of low osmolar, nonionic intravenous contrast. RADIATION DOSE: Total DLP: 1058.58 mGy*cm Estimated effective dose: (DLP x 0.015 x size factor) mSv CTDIvol has been reviewed. It is below the limits set by the Radiation Protocol Committee (RPC). Dose reduction techniques used: Automated exposure control, adjustment of the mAs and/or kVp according to patient size, standardized low-dose protocol, and/or iterative reconstruction technique. Comparison: CT abdomen/pelvis 02/24/2019. CT abdomen/pelvis 05/07/2017 Multiple chest x-rays extending back to 02/24/2019. The most recent is 1522 hours CHEST FINDINGS: Lymph nodes: No enlarged axillary, supraclavicular lymph nodes. Mediastinal lymph nodes are enlarged. A precarinal lymph node measures 1.7 x 2.3 cm. No enlarged hilar lymph nodes. Thyroid: Heterogeneous attenuation with nodules measuring up to 12 mm in the right lobe. Mediastinum: Right PICC line terminates in the SVC. No pericardial effusion. Heart and great vessels enhance normally without filling defects. The aorta is tortuous. The heart is mildly enlarged. No pericardial effusion. The esophagus is collapsed. Small intraluminal focus of high attenuating material may represent medication or enteric contrast. Lungs: Right Lung: Multifocal airspace opacities, particularly in the lower lobe. Left Lung: Multifocal airspace opacities particularly in the lower lobe. Airways: Dependently layering mucus in the trachea extending to the domitila. No filling defects in the distal bronchi Pleura:Small left subpulmonic effusion. No right pleural effusion. No pneumothorax. ABDOMEN FINDINGS: Liver: Normal attenuation. Subcentimeter low attenuating lesion in the inferior tip of segment 6 is too small to characterize. Gallbladder: Present with calcifications in the wall of the proximal gallbladder, mural thickening and luminal narrowing of the gallbladder with associated hyperemia, and gallstone in the gallbladder fundus measuring approximately 2 cm. This is stable. Biliary tree: No intrahepatic retroperitoneal biliary ductal dilatation. Pancreas: Normal attenuation without mass or ductal dilatation. Spleen: Normal in size without mass. Adrenal Glands: Mild thickening of the right adrenal gland, stable. 3 cm left adrenal adenoma is stable. Kidneys: Right: Normal enhancement. No cortical mass. Fullness of the right renal collecting system is stable without calyceal dilatation suggestive of extrarenal renal pelvis. No perinephric inflammation. Left: Normal enhancement. Low attenuating lesion in the upper pole measures 17 mm and suggestive of a cyst. No hydronephrosis. Lymph Nodes: No enlarged abdominal or periaortic lymph nodes. Aorta: Normal in diameter with scattered calcifications. PELVIS FINDINGS: Bowel: Stomach: Normal. Small Bowel: Normal in caliber with normal wall thickness. Postoperative changes of the bowel in the right hemiabdomen are stable. Large Bowel: Moderate stool burden in the descending colon, sigmoid colon and rectum, less compared to previous exam. There is persistent circumferential mural thickening of the rectal stiles without associated perirectal fat induration.. Appendix: Not visualized and may be absent. Bladder: Suprapubic catheter is redemonstrated. The [place] pouch is distended with lobulated contours. There is a right lower quadrant ileostomy that communicates with the bladder. This only contains a small amount of fluid within the ileostomy at its proximal aspect. No intraluminal calcification or surrounding inflammation Lymph Nodes: No enlarged mesenteric, pelvic, or inguinal lymph nodes. The uterus is absent. Lobulated contours of the right adnexa are stable extending back to 2018 Peritoneum/retroperitoneum: No free fluid or fluid collection. No free air. Bones: Mild scoliosis. Diffuse demineralization. No compression deformity. Sclerotic appearance of the right inferior pubic ramus is stable without cortical destruction. No lytic lesions. Soft tissues: Intrathecal catheter extending into the thoracic spine from L1 to is stable. The battery pack is in the right abdominal wall. IMPRESSION: 1. Multifocal infiltrates, particularly in the lower lobes consistent with pneumonia. There is only a small subpulmonic left pleural effusion. Prominent mediastinal lymph nodes are likely the result of infection. 2. No evidence of loculated fluid collection or bowel inflammation to explain leukocytosis in the abdomen or pelvis. 3. Moderate stool burden. Persistent rectal wall thickening without evidence of perirectal fat inflammation. Findings are concerning for stercoral proctitis or chronic fecal impaction. No bowel obstruction. 4. No CT findings to suggest cystitis or pyelonephritis. 5. Stable right adrenal gland thickening and left adrenal adenoma. Stable left renal cyst. Signed by: Dr. Griffin Whipple MD on 03/02/2019 4:54 PM
--- NOTE | 2019-03-02 17:02 | Progress Note ---
DATE: 03/02/2019 Internal Medicine Progress Note SUBJECTIVE: A 59-ear-old female, who had a past medical history positive for multiple sclerosis. She is on BiPAP right now. She was diagnosed with acute respiratory failure, UTI, sepsis, aspiration pneumonia. PHYSICAL EXAMINATION: HEART: Showed regular rhythm. Normal S1, S2 sound. LUNGS: Clear bilaterally. ABDOMEN: Soft. EXTREMITIES: Show no evidence of cyanosis or hematoma. Unable to move her lower extremities. VITAL SIGNS: Blood pressure 125/72, temperature 97.2, heart rate 124 per minute, respiratory rate 17 per minute, oxygen saturation 91%. LABORATORY STUDIES: On the BMP; sodium 145, potassium 5.4, chloride 110, CO2 21, BUN 13, creatinine 0.46. On the white blood count 22,400, hemoglobin 14.1, hematocrit 45.8, and platelet count 235,000, PT 12.4, INR 0.88, PTT 29.2. AST 39, ALT 38, total bilirubin 0.4, alkaline phosphatase 138. FINAL IMPRESSION: 1. Acute respiratory failure. 2. Aspiration pneumonia. 3. Urinary tract infection. 4. Influenza B. 5. Sepsis. 6. Leukocytosis. 7. Aspiration pneumonia. 8. Multiple sclerosis. 9. Diarrhea. PLAN OF TREATMENT: Continue albuterol q.4 hours. Continue Atrovent q.6 hours. Continue cefepime q.8 hours. Continue metronidazole 500 mg IV q.8 hours. Continue Tamiflu 75 mg twice a day for respiratory isolation, Remeron 45 mg at bedtime, calcium carbonate 500 mg daily. Continue aspirin 81 mg daily, hydroxyzine 50 mg twice a day, amlodipine 5 mg daily, Dulcolax 10 mg daily as needed, Tylenol 650 mg q.4 hours as needed for pain or fever, Colace 100 mg daily, niacin 500 mg daily, baclofen 20 mg three times a day, Zofran 4 mg q.4 hours as needed, magnesium oxide 400 mg daily, lorazepam 1 mg twice a day as needed for anxiety and trazodone 150 mg daily. Kayexalate 30 g one time because of high potassium. We are going to recheck the potassium level today. The patient remain critically ill due to the acute respiratory failure, sepsis, aspiration pneumonia and influenza. Continue monitoring her in the IMCU. MD JOSE Laboy/CARRIE /[id number] MTDD
[2019-03-02] MEDS ORDERED: IOPAMIDOL 370 MG/ML 200 ML INFUS..BTL INJ ONE ×2 (18:13→18:18)
[2019-03-02] MEDS ORDERED: SODIUM CHLORIDE 0.9% 50ML 50 ML ONE (18:13)
[2019-03-02] MEDS: MIRTAZAPINE 15 MG TAB PO SCH (19:40)
[2019-03-02] MEDS: TRAZODONE HCL 50 MG TAB PO SCH (19:40)
--- NOTE | 2019-03-02 22:01 | NUR ---
CALLED DR. WILL TO NOTIFY CULTURE RESULTS CAME BACK ON [facility] AND WHAT THE SUSEPTIBILITIES ARE FOR BOTH BACTERIA THAT INCLUDE AMPICILLIN AND MACRODANTIN, ED OF CREATINE LEVEL AND WAS ORDERED TO STOP CEFEPIME AND START MERROPENEM EDUCATED DR THAT NOT BOTH BACTERIA ARE SHOWING SUSEPTIBLE TO THAT DRUG BUT HE STATES THEY ARE SUSEPTIBLE AND TO CONTINUE ORDER. COMPLETED. WILL CONT TO MONITOR PATIENT.
[2019-03-02] MEDS: MEROPENEM 500MG 500 MG in SODIUM CHLORIDE 0.9% 50ML 50 ML IV SCH (22:47)
[2019-03-03] VITALS (11 sets, daily range): BP systolic 108–124; BP diastolic 63–67
[2019-03-03] MEDS: IPRATROPIUM BROMIDE 0.02% 2.5 ML NEB NEB SCH ×4 (00:30→18:45)
[2019-03-03] MEDS: MEROPENEM 500MG 500 MG in SODIUM CHLORIDE 0.9% 50ML 50 ML IV SCH (04:27)
[2019-03-03] MEDS: SODIUM CHLORIDE 0.9% 1000ML 1,000 ML IV SCH (04:27)
[2019-03-03] MEDS: ASPIRIN 81 MG CHEW TAB PO SCH (05:16)
[2019-03-03 05:58] LABS: BASOPHILS % 0.1 % (0.0-1.0); EOSINOPHILS # (AUTO) 0.1 (0.0-0.4); EOSINOPHILS % 0.5 % (0.0-6.0); HEMATOCRIT 47.2 % (34.2-44.1); HEMOGLOBIN 14.6 g/dL (12.0-16.0); LYMPHOCYTES # (AUTO) 0.4 (1.0-3.2); LYMPHOCYTES % 1.5 % (18.0-39.1); MEAN CORPUSCULAR HEMOGLOBIN 31.3 pg (28-32); MEAN CORPUSCULAR HGB CONC 30.9 g/dL (31-35); MEAN CORPUSCULAR VOLUME 101.1 fL (81-99); MONOCYTES # (AUTO) 0.9 (0.2-0.8); MONOCYTES % 3.7 % (4.4-11.3); NEUTROPHILS # (AUTO) 22.8 (2.1-6.9); NEUTROPHILS % 89.9 % (38.7-80.0); PLATELET COUNT 273 x10e3/uL (140-360); RED BLOOD COUNT 4.67 x10e6/uL (3.6-5.1); RED CELL DISTRIBUTION WIDTH 14.6 % (11.7-14.4)
[2019-03-03] MEDS: METRONIDAZOLE 500MG/NS 100ML 100 ML IV SCH (06:00)
[2019-03-03 06:19] LABS: ALANINE AMINOTRANSFERASE 39 IU/L (0-55); ALBUMIN/GLOBULIN RATIO 0.4 (0.8-2.0); ALKALINE PHOSPHATASE 203 IU/L (40-150); ANION GAP 18.4 mmol/L (8-16); BLOOD UREA NITROGEN 17 mg/dL (7-26); BUN/CREATININE RATIO 21 (6-25); CALCIUM 10.1 mg/dL (8.4-10.2); CARBON DIOXIDE 23 mmol/L (22-29); CHLORIDE 111 mmol/L (98-107); CREATININE, SERUM 0.81 mg/dL (0.57-1.11); EST GLOMERULAR FILTRATION RATE > 60 ML/MIN (60-); GLUCOSE 147 mg/dL (74-118); SODIUM 150 mmol/L (136-145)
[2019-03-03 06:35] LABS: POTASSIUM 2.4 mmol/L (3.5-5.1)
[2019-03-03] MEDS: ALBUTEROL SULF 0.083% NEB SOLN 3 ML NEB NEB SCH ×5 (08:01→22:20)
[2019-03-03] MEDS: HYDROXYZINE HCL 25 MG TAB PO SCH (08:12)
[2019-03-03] MEDS: LORAZEPAM 1 MG TAB PO SCH (08:13)
[2019-03-03] MEDS: AMLODIPINE BESYLATE 5 MG TAB PO SCH (08:13)
[2019-03-03] MEDS: OYST-CAL-D 500MG TABLET PO SCH (08:13)
[2019-03-03] MEDS: DOCUSATE SODIUM 100 MG CAP PO SCH (08:13)
[2019-03-03] MEDS: OSELTAMIVIR PHOSPHATE 75 MG CAP PO SCH ×2 (08:13→16:08)
[2019-03-03] MEDS: NIACIN 500 MG TABSR PO SCH (08:13)
[2019-03-03] MEDS: MAGNESIUM OXIDE 400 MG TAB PO SCH (08:13)
[2019-03-03 09:42] LABS: LYMPHOCYTES % (MANUAL) 2 % (19-48); MONOCYTES % (MANUAL) 3 % (3.4-9.0); NEUTROPHILS % (MANUAL) 95 % (40-74)
[2019-03-03] MEDS: MEROPENEM 500MG/ NS 50ML 50 ML IV SCH ×3 (11:06→23:15)
--- NOTE | 2019-03-03 11:19 | NUR ---
NOTIFIED DR ESTRADA OF K LEVEL, ORDERS RECEIVED AND ENTERED
[2019-03-03] MEDS ORDERED: POTASSIUM CHLORIDE 20MEQ/100ML 200 ML IV ONE ×2 (11:30→19:00)
[2019-03-03] MEDS ORDERED: AMPICILLIN SOD 1 GM/NS 50ML 50 ML IV SCH (12:00)
--- NOTE | 2019-03-03 13:56 | Progress Note ---
DATE: 03/03/2019 Internal Medicine Progress Note SUBJECTIVE: The patient is still very lethargic on BiPAP. The patient had not to be intubated of course. She had a DNR to be applied only in a terminal condition. PHYSICAL EXAMINATION: VITAL SIGNS: Blood pressure 119/66, temperature 96.6, heart rate 111 per minute, blood pressure 119/66, oxygen saturation 95%. HEART: Showed regular rhythm. Normal S1, S2 sound. LUNGS: Clear bilaterally. ABDOMEN: Soft. EXTREMITIES: Show no evidence of cyanosis or hematoma. LABORATORY DATA: On the BMP; sodium 150, potassium 2.5, chloride 111, CO2 23, BUN 17, creatinine 0.81, glucose 147. On the CBC; white count 25.3, hemoglobin 14.6, hematocrit 47.2, platelet count 273,000, PTT 12.4 INR 0.98, PTT 29.2. AST 21, ALT 39, total bilirubin 0.2, alkaline phosphatase 203. FINAL IMPRESSION: 1. Acute respiratory failure secondary to pneumonia. 2. Urinary tract infection. 3. Influenza B. 4. Aspiration pneumonia. 5. Leukocytosis. 6. Multiple sclerosis. 7. Sepsis. 8. Urinary tract infection with multidrug-resistant bacteria including Escherichia coli and Enterococcus. PLAN OF TREATMENT: We are going to start ampicillin 1 g IV q.6 hours because of Enterococcus is sensitive to that particular antibiotics. Meropenem does not cover that. Continue IV meropenem for E. coli and pneumonia. Continue albuterol and Atrovent q.4 hours and 6 hours. Potassium has been replaced. We are going to recheck potassium initially today and tomorrow. Continue mirtazapine 45 mg at bedtime. Continue Tamiflu 75 mg twice a day. Continue respiratory isolation. Continue calcium carbonate 500 mg daily. Continue with sodium chloride 125 mL an hour, aspirin 81 mg daily, hydralazine 50 mg twice a day, amlodipine 5 mg daily, bisacodyl 10 mg daily as needed, Tylenol 650 mg q.4 hours as needed Colace 100 mg daily, niacin 500 mg daily, baclofen 20 mg three times a day, magnesium oxide 400 mg daily, Zofran 4 mg IV q.4 hours as needed for nausea and vomiting, lorazepam 1 mg twice a day as needed, trazodone 150 mg at bedtime. We may need to hold on the baclofen and trazodone due to the change in mental status. The patient also with mirtazapine. The patient is in critical condition of course due to multiple sclerosis and with respiratory failure, pneumonia, UTI, so far full code. MD JOSE Laboy/CARRIE /[id number] MTDD
--- NOTE | 2019-03-03 14:06 | Progress Note ---
DATE: 03/03/2019 SUBJECTIVE: Ms. Tiffanie Espinoza remains lethargic. Sitter at the bedside. The patient currently does not seem in acute distress. Cultures reviewed. Her laboratory data reviewed. Her urine culture showed E coli, Enterococcus faecalis. Blood cultures are negative. I was contacted yesterday with blood culture positive, but now is still negative. Her white count is up to 25.3. Her hemoglobin 14, hematocrit 47. Her potassium is 2.5 with sodium was 150. Creatinine is 0.85. She had a CAT scan of abdomen and pelvis, which showed multifocal infiltrate consistent with pneumonia, persistent rectal wall thickening without evidence of perirectal fat inflammation, concerning for proctitis. No evidence for pyelonephritis. MEDICATION LIST: She is on potassium supplement. We changed it to meropenem yesterday. She is also on Tylenol and Tamiflu. PHYSICAL EXAMINATION: GENERAL: She is lethargic. VITAL SIGNS: Stable. No fever. T-max 101.6 on February 28. HEENT: She is not icteric. NECK: Supple. CHEST: Few rhonchi. COR: S1, S2. No S3, S4, or murmur. ABDOMEN: Soft. IMPRESSION: 1. Sepsis secondary to community-acquired pneumonia. 2. Tamiflu. 3. Underlying multiple sclerosis. 4. Concerned about proctitis. PLAN: 1. Observe, recheck CBC. 2. Hyponatremia. 3. IV fluid per Internal Medicine. 4. Hypokalemia to be replaced. 5. We will follow. MD JOSE ANTONIO Bernard/CARRIE /[id number] KATHLEEN
[2019-03-03] MEDS: DEXTROSE 5%/0.45% SOD CHL 1,000 ML IV SCH (15:00)
--- NOTE | 2019-03-03 15:13 | NUR ---
Suprapubic catheter replaced at bedside with Dr. Buck, patient tolerated well and rutherford draining urine at this time, urine culture sent per MD order, will continue to monitor
[2019-03-03 17:18] LABS: ANION GAP 16.7 mmol/L (8-16); BLOOD UREA NITROGEN 19 mg/dL (7-26); BUN/CREATININE RATIO 21 (6-25); CALCIUM 10.2 mg/dL (8.4-10.2); CARBON DIOXIDE 24 mmol/L (22-29); CHLORIDE 113 mmol/L (98-107); EST GLOMERULAR FILTRATION RATE > 60 ML/MIN (60-); GLUCOSE 151 mg/dL (74-118); SODIUM 151 mmol/L (136-145)
[2019-03-03] MEDS: AMPICILLIN SOD 1 GM/NS 50ML 50 ML IV SCH ×2 (17:23→22:32)
[2019-03-03 17:36] LABS: POTASSIUM 2.7 mmol/L (3.5-5.1)
[2019-03-03 18:07] LABS: CLARITY,URINE CLOUDY (CLEAR)
[2019-03-03 18:08] LABS: BILIRUBIN,URINE NEGATIVE (NEGATIVE); KETONES,URINE 1+ (NEGATIVE); LEUKOCYTE ESTERASE ,URINE NEGATIVE (NEGATIVE); NITRITE,URINE NEGATIVE (NEGATIVE); PROTEIN,URINE DIPSTICK 1+ (NEGATIVE); URINE UROBILINOGEN 0.2 mg/dL (0.2 - 1)
[2019-03-03 18:09] LABS: BACTERIA,URINE FEW /HPF; EPITHELIAL CELLS,URINE FEW /LPF
--- NOTE | 2019-03-03 18:13 | NUR ---
NOTIFIED DR ESTRADA OF REPEAT POTASSIUM LEVEL. ORDERS RECEIVED AND ENTERED
[2019-03-03 18:21] LABS: COLOR,URINE YELLOW (YELLOW)
[2019-03-04] VITALS (9 sets, daily range): BP systolic 92–121; BP diastolic 52–74
[2019-03-04] MEDS: DEXTROSE 5%/0.45% SOD CHL 1,000 ML IV SCH ×2 (00:57→13:30)
[2019-03-04] MEDS ORDERED: POTASSIUM CHLORIDE 20MEQ/100ML 200 ML IV ONE (01:00)
[2019-03-04] MEDS: ALBUTEROL SULF 0.083% NEB SOLN 3 ML NEB NEB SCH ×6 (01:52→23:50)
[2019-03-04] MEDS: IPRATROPIUM BROMIDE 0.02% 2.5 ML NEB NEB SCH ×5 (01:52→23:50)
[2019-03-04] MEDS: ASPIRIN 81 MG CHEW TAB PO SCH (04:59)
[2019-03-04] MEDS: AMPICILLIN SOD 1 GM/NS 50ML 50 ML IV SCH ×3 (05:00→18:11)
[2019-03-04 05:33] LABS: BASOPHILS % 0.2 % (0.0-1.0); HEMATOCRIT 41.8 % (34.2-44.1); HEMOGLOBIN 13.1 g/dL (12.0-16.0); LYMPHOCYTES # (AUTO) 0.5 (1.0-3.2); LYMPHOCYTES % 2.5 % (18.0-39.1); MEAN CORPUSCULAR HEMOGLOBIN 30.9 pg (28-32); MEAN CORPUSCULAR HGB CONC 31.3 g/dL (31-35); MEAN CORPUSCULAR VOLUME 98.6 fL (81-99); MONOCYTES # (AUTO) 0.9 (0.2-0.8); MONOCYTES % 4.3 % (4.4-11.3); NEUTROPHILS # (AUTO) 17.6 (2.1-6.9); NEUTROPHILS % 86.7 % (38.7-80.0); PLATELET COUNT 276 x10e3/uL (140-360); RED BLOOD COUNT 4.24 x10e6/uL (3.6-5.1); RED CELL DISTRIBUTION WIDTH 15.1 % (11.7-14.4)
[2019-03-04] MEDS: MEROPENEM 500MG/ NS 50ML 50 ML IV SCH ×4 (05:37→23:30)
[2019-03-04 05:53] LABS: ANION GAP 14.7 mmol/L (8-16); BLOOD UREA NITROGEN 22 mg/dL (7-26); BUN/CREATININE RATIO 24 (6-25); CALCIUM 9.3 mg/dL (8.4-10.2); CARBON DIOXIDE 24 mmol/L (22-29); CHLORIDE 117 mmol/L (98-107); CREATININE, SERUM 0.93 mg/dL (0.57-1.11); EST GLOMERULAR FILTRATION RATE > 60 ML/MIN (60-); GLUCOSE 146 mg/dL (74-118); POTASSIUM 3.7 mmol/L (3.5-5.1); SODIUM 152 mmol/L (136-145)
--- NOTE | 2019-03-04 07:00 | NUR ---
Report and walking rounds completed. Patient in bed resting on bipap. Safety measures in place. No issues or concerns noted. Will continue to monitor. Addendum: 03/05/19 at 0726 by Lilia Steinberg RN 03/04/19 0843
[2019-03-04 07:25] LABS: LYMPHOCYTES % (MANUAL) 4 % (19-48); MONOCYTES % (MANUAL) 6 % (3.4-9.0); NEUTROPHILS % (MANUAL) 90 % (40-74)
[2019-03-04 07:26] LABS: PLATELET ESTIMATE ADEQUATE; PLATELET MORPHOLOGY COMMENT NORMAL; RBC MORPHOLOGY COMMENT NORMAL
[2019-03-04] MEDS: DOCUSATE SODIUM 100 MG CAP PO SCH (08:12)
[2019-03-04] MEDS: AMLODIPINE BESYLATE 5 MG TAB PO SCH (08:12)
[2019-03-04] MEDS: MAGNESIUM OXIDE 400 MG TAB PO SCH (08:12)
[2019-03-04] MEDS: NIACIN 500 MG TABSR PO SCH (08:12)
[2019-03-04] MEDS: OYST-CAL-D 500MG TABLET PO SCH (08:13)
--- NOTE | 2019-03-04 10:42 | NUR ---
Order received for LTAC. Spoke to Shelia - aaliyah [phone], who has a few concerns. Ms. Espinoza has an advanced directive wishing to withhold lifesaving treatment for a terminal condition, however she states it is a "trinh area" since her diagnosis of pneumonia and sepsis is not terminal. Wants to explore hospice as well. She consents to LTAC but would like to wait to transfer until she arrives to [place] -- she is driving from [place]. Also discussed DNR with AGUILA wheeler and Shelia states her stepmom's wishes are no intubation and DNR code status. Spoke to Dr. Herrera, he speaks to Shelia on the phone, orders to continue LTAC but will discuss hospice when Shelia is at bedside later this week.
[2019-03-04] MEDS: COPAXONE 40 MG SC SCH (15:30)
--- NOTE | 2019-03-04 18:26 | NUR ---
POA/step daughter Leela spoke with Tarah MONCADA and Dr Herrera this morning. pt is to go to LTAC and family is discussing possible hospice, since pts advanced directives request DNAR. chart has been updated to reflec. pt remains stable VS, lethargic/unarrousable, and unable to maintain off bipap at this time. family aware. Leela also asked nursing staff to not disclose pt status with her home caregivers, whom have been previously present at hospital with pt and presenting as pts next of kin.
--- NOTE | 2019-03-04 20:00 | NUR ---
Suprapubic cath irrigated and yellow urine with white particles returned. Tolerated well.
[2019-03-05] VITALS (9 sets, daily range): BP systolic 99–123; BP diastolic 54–87
--- NOTE | 2019-03-05 | NUR ---
Suprapubic cath irrigated and yellow urine with white particles returned. Tolerated well.
[2019-03-05] MEDS: AMPICILLIN SOD 1 GM/NS 50ML 50 ML IV SCH ×2 (00:16→06:00)
[2019-03-05] MEDS: DEXTROSE 5%/0.45% SOD CHL 1,000 ML IV SCH ×2 (02:18→15:37)
[2019-03-05] MEDS: ALBUTEROL SULF 0.083% NEB SOLN 3 ML NEB NEB SCH ×5 (02:45→20:35)
--- NOTE | 2019-03-05 04:00 | NUR ---
Suprapubic cath irrigated and yellow urine with white particles returned. Tolerated well.
--- NOTE | 2019-03-05 04:30 | NUR ---
Patient HR 126, 02 sat 86% on bipap at 75%. Resp paged
--- NOTE | 2019-03-05 04:49 | NUR ---
Resp deep suctioned patient and bipap adjusted to 100%, 02 sat 90% and HR 124.
--- NOTE | 2019-03-05 05:48 | NUR ---
Page out to Dr Maia Gilbert regarding elevated HR 125. Awaiting call back. Addendum: 03/05/19 at 0554 by Lilia Steinberg RN [phone] page placed
[2019-03-05] MEDS: ASPIRIN 81 MG CHEW TAB PO SCH (06:00)
--- NOTE | 2019-03-05 06:28 | NUR ---
Spoke with Dr Debi Gilbert regarding elevated HR at 126, 02 sat 88% on bipap 100%. Patient lung sounds sound wet and crackles, D51/2NS 80ml and sodium 152. New order for metoprolol 5 mg ivp Q 4 hours PRN HR greater than 100.
[2019-03-05] MEDS ORDERED: METOPROLOL TARTRATE INJ 1 MG/ML VIAL IV PRN (06:30)
--- NOTE | 2019-03-05 07:00 | NUR ---
Report and walking rounds completed with oncoming nurse. Patient in bed resting on bipap. Safety measures in place. No issues or concerns noted.
[2019-03-05] MEDS: IPRATROPIUM BROMIDE 0.02% 2.5 ML NEB NEB SCH ×3 (07:05→20:35)
[2019-03-05] MEDS: MEROPENEM 500MG/ NS 50ML 50 ML IV SCH ×3 (07:28→19:45)
[2019-03-05] MEDS: AMLODIPINE BESYLATE 5 MG TAB PO SCH (09:00)
[2019-03-05] MEDS: NIACIN 500 MG TABSR PO SCH (09:00)
[2019-03-05] MEDS: OYST-CAL-D 500MG TABLET PO SCH (09:00)
[2019-03-05] MEDS: DOCUSATE SODIUM 100 MG CAP PO SCH (09:00)
[2019-03-05] MEDS: MAGNESIUM OXIDE 400 MG TAB PO SCH (09:00)
--- NOTE | 2019-03-05 17:30 | NUR ---
Beverley Horne RN updated MOT (needs to be signed) and room number: 307 call [phone] for report
--- NOTE | 2019-03-05 18:55 | NUR ---
handoff report to Pb vallejo to nurse Vianney.
--- NOTE | 2019-03-05 19:21 | Progress Note ---
DATE: 03/05/2019 Cardiology Progress Note SUBJECTIVE: No current cardiac symptoms. OBJECTIVE: VITAL SIGNS: Temperature is 99.5, heart rate is 108, respirations are 23, blood pressure is 99/58, oxygen saturation 94% on 15 L nasal cannula. GENERAL: No apparent distress. CARDIOVASCULAR: Tachycardic, regular rhythm. LUNGS: Diminished breath sounds. ABDOMEN: Soft, obese, nontender. LABORATORY DATA: Reviewed. Potassium 3.7, creatinine 0.93, hemoglobin is 13.1, white blood cell count is 20.34. TELEMETRY: Monitoring revealed sinus tachycardia. IMPRESSION: 1. Pneumonia. 2. Sinus tachycardia. RECOMMENDATIONS: Continue infectious treatment and intravenous fluids. Continue rate control with IV metoprolol. Monitor on telemetry. Brian Barfield DO BM/MODL /[id number] MTDShalini
--- NOTE | 2019-03-05 20:37 | NUR ---
Received change of shift report from AM shift. Walking rounds completed.
--- NOTE | 2019-03-05 20:39 | NUR ---
MOT completed and ready for transport. Paperwork given to K.Pope hernandez sup. for completion. EMT arrived but with no Bipap. They will go get bypap. Patient in bed with no noted distress at this time. Waiting for transportation to [facility] room 305.
--- NOTE | 2019-03-05 21:44 | NUR ---
EMT returned to transport patient with bipap. Resp. therapy in room to instruct EMT on bipap.
== END 2019-03-05 22:01 | DRG 698 ==
LOC: ER 17:01 → ERHOLD 21:05 → IMCU 22:24
PROC: 02HV33Z Insertion of Infusion Device into Superior Vena Cava, Percutaneous Approach (ICD-10-PCS; principal; 2019-03-02)
DX: T83.518A Infection and inflammatory reaction due to other urinary catheter, initial encounter (principal); A41.9 Sepsis, unspecified organism; J10.00 Influenza due to other identified influenza virus with unspecified type of pneumonia; J96.00 Acute respiratory failure, unspecified whether with hypoxia or hypercapnia; J18.9 Pneumonia, unspecified organism; Z16.24 Resistance to multiple antibiotics; G35 Multiple sclerosis; F32.9 Major depressive disorder, single episode, unspecified; Z74.01 Bed confinement status; B96.20 Unspecified Escherichia coli [E. coli] as the cause of diseases classified elsewhere; B95.2 Enterococcus as the cause of diseases classified elsewhere
CPT/HCPCS: 31720; 36415; 36569; 71045; 71260; 74176; 74177; 80048; 80053; 80202; 81001; 82150; 82550; 82553; 83605; 83690; 83735; 83880; 84132; 84484; 85025; 85610; 85730; 87040; 87086; 87186; 87400; 93005; 93306; 94640; 94660; 99284; J0290; J2185; J3370; J3410; J3480; J7030; Q9967